=== PATIENT | female | born 1945 | race Caucasian/White ===

== ENCOUNTER → 2020-03-18 15:26 | Outpatient (CLI) | payer MEDICARE, BC, OTHER, SELFPAY ==
--- NOTE | ~2020-03-18 | MM_ITS ---
EXAMINATION: MM screening alysha BI w derrek HISTORY: Screening mammogram TECHNIQUE: Craniocaudal and mediolateral oblique 3-D tomosynthesis images were obtained and synthetic 2-D images were generated. CAD analysis was submitted and interpreted. COMPARISON: Comparison to multiple prior studies sequentially, with oldest reviewed study dated 10/07. BREAST PARENCHYMAL COMPOSITION: There are scattered areas of fibroglandular density. FINDINGS: There is no evidence of suspicious mass, calcification, or architectural distortion to sugg est malignancy in either breast. There has been no suspicious interval change. IMPRESSION: 1. No mammographic evidence of malignancy. 2. Recommend routine screening mammography in one year. BI-RADS Category 1: Negative Reviewed, dictated and finalized at location A.
== END ==
PROVIDERS: Visit Provider Obstetrics & Gynecology
DX: Z12.31 Encounter for screening mammogram for malignant neoplasm of breast (principal)
CPT/HCPCS: 77063; 77067

== ENCOUNTER 2020-09-05 16:12 | Emergency (ER) | payer MEDICARE, BC, OTHER, SELFPAY ==
[2020-09-05 16:20] VITALS: BP 136/62; PULSE 75; RESP 20; TEMP 36.5; O2SAT 99
--- NOTE | 2020-09-05 16:35 | ED.GENADULT ---
HPI - General Adult General Chief complaint: Urogenital-Female Stated complaint: UTI SYMPTOMS Time Seen by Provider: 09/05/20 16:33 Source: patient and RN notes reviewed Mode of arrival: ambulatory Limitations: no limitations History of Present Illness HPI narrative: 75-year-old female presents with urinary complaints for 3 days. Dysuria consist of burning, frequency, right lower and right flank pain.? No treatment.? Denies fever or chills. No significant pelvic pain. No vaginal discharge.? No concerns for STDs. Exacerbating factors urinating.? Denies hematuria or vaginal bleeding. LMP post menopausal. Denies nausea, vomiting, and abdominal pain.? Tolerating liquids well.? Remains active. The patient reports she was diagnosed with COVID-19 on 08/21/20. The patient reports she is not waiting for the results of a COVID-19 lab test. The patient reports she do not have sweats, weakness, or fatigue. The patient reports she do not have a new or worsening cough or shortness of breath. Ileana does reports a constant cough with intermittent chest irritation with coughing episodes. Delsym without relief. No chest congestion or productive cough. Nasal congestion. Denies chest pain. The patient reports she do not have any rhinorrhea, sore throat, loss of taste, and diarrhea. Denies recent traveling. Denies concerns for COVID-19 or exposures been home with limited outdoor exposure except for essential household needs and return home. At this time, patient is not suspected of having COVID-19. Some parts of this dictation were generated by voice recognition software and may contain typographical and/or grammatical inaccuracies. Related Data Allergies Allergy/AdvReac Type Severity Reaction Status Date / Time ephedrine Allergy Unknown Palpitation Verified 09/05/20 17:01 s levofloxacin Allergy Unknown Diarrhea Verified 09/05/20 17:01 magnesium stearate Allergy Unknown Other Verified 09/05/20 17:01 Penicillins Allergy Unknown Other Verified 09/05/20 17:01 ciprofloxacin AdvReac Unknown Diarrhea Verified 09/05/20 17:01 Quinolones AdvReac Unknown Diarrhea Verified 09/05/20 17:01 Contrast Media Allergy Unknown Rash Uncoded 03/31/20 10:45 Review of Systems Review of Systems: Narrative: CONSTITUTIONAL: Denies fever, chills, sweats. EYES: Denies visual changes, redness, discharge. ENT: Denies rhinorrhea, sore throat, otalgia. Complains of congestion. CARDIOVASCULAR: Denies chest pain, palpitations, edema. RESPIRATORY: Denies dyspnea, wheezing. Complains of dry cough, GASTROINTESTINAL: Denies abdominal pain, nausea, vomiting, diarrhea. GENITOURINARY: Complains of dysuria (burning, frequency, right lower and right flank pain). Denies hematuria, abnormal discharge. SKIN: Denies rash or itching. MUSCULOSKELETAL: Denies acute back pain, joint pain, or myalgia. NEUROLOGIC: Denies numbness or focal weakness. PSYCHIATRIC: Denies anxiety or depression. All systems reviewed & are unremarkable except as noted in HPI and below. [facility] Past Medical History Medical History (Updated 09/06/20 @ 00:00 by [facility] Alisha) Chronic pain of both knees Hematuria History of gastroesophageal reflux (GERD) Irritable bowel syndrome Screening for hyperlipidemia Seborrheic dermatitis, unspecified Surgical History Surgical History (Updated 09/05/20 @ 17:00 by GARTH Wilkins) Cataract extraction status, left eye (~2019) History of lumpectomy of right breast Family History Family History Father Hypertension, Onset Age: 81 Cerebrovascular accident, Onset Age: 81 Patient's father is , Onset Age: 81 Mother Hypertension Cerebrovascular accident Family history of diabetes mellitus in first degree relative Family history of malignant neoplasm of breast in first degree relative Family history of glaucoma Family history of heart disease in male family member before a
== END 2020-09-05 17:25 | disposition home or self-care (01) ==
PROVIDERS: Emergency Provider Nurse Practitioner Family
DX: R30.0 Dysuria (principal); R05 Cough; K21.9 Gastro-esophageal reflux disease without esophagitis
CPT/HCPCS: 81003; 87086; 99213; G0463

== ENCOUNTER 2020-09-29 15:33 | Outpatient (CLI) | payer MEDICARE, BC, OTHER, SELFPAY ==
--- NOTE | ~2020-09-29 | CT_ITS ---
EXAMINATION: CT chest abdomen pelvis wo con DATE: 09/29/2020 15:56 INDICATION: Left upper quadrant abdominal pain, back pain and chest pain. COVID positive for one tatianna h prior. TECHNIQUE: Computed tomography (CT) of the chest, abdomen, and pelvis was performed without intraveno us contrast. Automated exposure control and iterative reconstruction technique were employed. The dos e-length product was 397.93 mGy-cm. COMPARISON: 10/09/2019 FINDINGS: CHEST CT: Minimal emphysema with mild biapical pleural-parenchymal scarring. Unchanged pattern of scattered deepti ear discoid atelectasis/scarring in both lungs. No new airspace opacities, pulmonary edema or pleural effusion. No change in a couple tiny likely granuloma in the left upper lobe the larger measuring 3 mm. Heart size is normal. Small pericardial effusion. Atherosclerotic coronary artery calcification. Thoracic aorta is normal in caliber. No pathologically enlarged thoracic lymphadenopathy. Mild to mod erate thoracic spondylosis.. ABDOMEN/PELVIS CT: Liver, gallbladder, spleen and adjacent splenule, pancreas and bilateral bilateral adrenal glands are normal. A few tiny bilateral low-attenuation renal cysts which are better appreciated on prior contr ast enhanced CT . Large amount of stool scattered throughout the colon suggestive of constipation. No dilated bowel to suggest obstruction. The appendix is not visualized. No pericecal inflammatory torres ge to suggest acute appendicitis. Unchanged likely benign 2.2 cm right adnexal cyst. Bladder, atrophi c uterus and left adnexa are unremarkable. No free intraperitoneal gas or fluid. No pathologically en larged abdominal or pelvic lymphadenopathy. Mild to moderate thoracic spondylosis. IMPRESSION: 1. Small pericardial effusion. 2. Large amount of colonic stool which could be seen with constipation. No other acute intra-abdomina l/pelvic process. Reviewed, dictated and finalized at location A. ER MANAGEMENT SPECIALIST IMPRESSION: 1. Small pericardial effusion. 2. Large amount of colonic stool which could be seen with constipation. No othe r acute intra-abdominal/pelvic process.
== END 2020-09-29 15:34 | disposition home or self-care (01) ==
LOC: ANHIMG 15:33
DX: R10.12 Left upper quadrant pain (principal); M47.814 Spondylosis without myelopathy or radiculopathy, thoracic region; I31.3 Pericardial effusion (noninflammatory); N28.1 Cyst of kidney, acquired; I25.10 Atherosclerotic heart disease of native coronary artery without angina pectoris
CPT/HCPCS: 71250; 74176

== ENCOUNTER 2020-10-12 09:20 | Outpatient (CLI) | payer MEDICARE, BC, OTHER, SELFPAY ==
--- NOTE | ~2020-10-12 | MR_ITS ---
EXAMINATION: MR thoracic spine wo con EXAM DATE: 10/12/2020 10:28 INDICATION: Localized swelling of back, left-sided back pain. TECHNIQUE: Multi-sequential, multiplanar MR images of the thoracic spine were obtained without contra st. Sagittal T1, T2, T2 fat saturation, axial T2 weighted images reviewed. Comparison is made to madhu or examination from 02/14/2017. FINDINGS: There is mild diffuse thoracic facet arthropathy. The thoracic central canal and neural for amen are widely patent. Several small endplate Schmorl's nodes, mild disc disease. There are scattere d focal signal abnormalities consistent with hemangiomata, otherwise without focal suspicious marrow signal abnormalities. The vertebral bodies are aligned in the AP dimension. Paraspinal soft tissue is unremarkable. IMPRESSION: Mild thoracic spondylosis. Reviewed, dictated and finalized at location A. TIAN BLIND MAKER IMPRESSION: Mild thoracic spondylosis.
--- NOTE | ~2020-10-12 | MR_ITS ---
EXAMINATION: MR lumbar spine wo [facility] EXAM DATE: 10/12/2020 10:28 INDICATION: Localized swelling of back. Low back pain. TECHNIQUE: Multi-sequential, multiplanar MR images of the lumbar spine were obtained without contrast . Sagittal T1, T2, T2 fat saturation images. Axial T2 weighted images. Comparison is made to prior examination from 02/23/2016. FINDINGS: Mild to moderate lumbar disc disease. The conus medullaris terminates at the L1/2 level and has normal signal intensity and morphology. There are no suspicious marrow signal abnormalities. Th e vertebral bodies are aligned in the AP dimension. Paraspinal soft tissue is unremarkable. Level by level evaluation: T12-L1: There is a minimal diffuse disc bulge. Facet arthropathy: Mild. Neural foraminal stenosis: No stenosis. Central canal stenosis: No stenosis. L1-L2: There is a mild diffuse disc bulge. Facet arthropathy: Mild. Neural foraminal stenosis: No stenosis. Central canal stenosis: No stenosis. L2-L3: There is a mild to moderate diffuse disc bulge. Facet arthropathy: Mild to moderate. Neural foraminal stenosis: Mild to moderate right, mild left. Central canal stenosis: Mild. L3-L4: There is a mild to moderate diffuse disc bulge. Facet arthropathy: Mild. Neural foraminal stenosis: Mild to moderate right, mild left. Central canal stenosis: Mild to moderate. L4-L5: There is a mild to moderate diffuse disc bulge. Facet arthropathy: Mild to moderate. Neural foraminal stenosis: Mild to moderate bilateral. Central canal stenosis: Moderate. L5-S1: There is a moderate diffuse disc bulge. Facet arthropathy: Mild to moderate right, mild left. Neural foraminal stenosis: Moderate bilateral. Central canal stenosis: Moderate. Narrowed lateral recesses bilaterally. Mild interval progression in spondylosis compared to 2016. IMPRESSION: 1. Up to moderate lumbar spondylosis as detailed above. Reviewed, dictated and finalized at location A. SPHERIC PHYSICS PROFESSOR
== END 2020-10-12 09:21 | disposition home or self-care (01) ==
DX: R22.2 Localized swelling, mass and lump, trunk (principal); M47.817 Spondylosis without myelopathy or radiculopathy, lumbosacral region; M48.07 Spinal stenosis, lumbosacral region; M47.815 Spondylosis without myelopathy or radiculopathy, thoracolumbar region; M48.05 Spinal stenosis, thoracolumbar region
CPT/HCPCS: 72146; 72148

== ENCOUNTER → 2020-12-24 14:13 | Outpatient (CLI) | payer MEDICARE, BC, OTHER, SELFPAY ==
--- NOTE | ~2020-12-24 | XR_ITS ---
EXAMINATION: XR chest 2V EXAM DATE: 12/24/2020 14:54 INDICATION: Chest wall pain. Sternal pain, pain under the clavicles, with tenderness. Pain with swall owing. States progression after having endoscopy. TECHNIQUE: Frontal and lateral projections of the chest obtained and reviewed. Comparison is made to prior examination from 08/26/2018. FINDINGS: Severe chronic hyperinflation. The lungs are clear. There are no pleural effusions. The cardiomediastinal silhouette is within normal limits. No evidence of mediastinal or subcutaneous gas. There is no pneumothorax suspected. The bones and soft tissues are unremarkable. IMPRESSION: 1. No acute cardiopulmonary findings. 2. Hyperinflation. Reviewed, dictated and finalized at location A.
== END ==
DX: R07.89 Other chest pain (principal); M94.0 Chondrocostal junction syndrome [Tietze]; R91.8 Other nonspecific abnormal finding of lung field
CPT/HCPCS: 71046

== ENCOUNTER 2021-01-11 11:46 | Emergency (ER) | payer MEDICARE, BC, OTHER, SELFPAY ==
--- NOTE | ~2021-01-11 | CT_ITS ---
EXAMINATION: CT abdomen pelvis wo con DATE: 01/11/2021 13:32 INDICATION: Left-sided abdomen pain TECHNIQUE: Computed tomography (CT) of the abdomen and pelvis was performed without intravenous contr ast. The dose-length product was 253.89 mGy-cm. Automated exposure control and iterative reconstruction technique were employed. COMPARISON: CT dated 09/29/2020 FINDINGS: Bibasilar atelectasis. Small pericardial effusion. Trace left pleural effusion. Moderate at herosclerosis without evidence for aneurysm. The liver, spleen, pancreas, adrenal glands and kidneys are unremarkable. There is a 2.2 cm right adn exal cyst. Small hiatal hernia. No significant lymphadenopathy. Mild osteoarthritis of the hips. No a cute osseous abnormality. No lytic or blastic lesions. IMPRESSION: 1. Small pericardial effusion. 2: Trace left pleural effusion. 3: 2.2 cm right adnexal cyst. Reviewed, dictated and finalized at location B.
[2021-01-11 11:51] VITALS: BP 154/63; PULSE 77; RESP 20; TEMP 36.2; O2SAT 99
[2021-01-11 12:07] LABS: Hematocrit 40.5 % (37.0-47.0); Hemoglobin 13.7 g/dL (12.0-15.0); Mean Corpuscular HGB Conc 33.8 g/dl (32-36); Mean Corpuscular Volume 91.6 fl (80-100); Mean Platelet Volume 10.2 fl (7.4-10.4); Platelet Count Result 223 k/mm3 (150-375); Red Blood Count 4.42 M/mm3 (4.2-5.4); Red Cell Distribution Width 13.1 % (11.5-14.5); White Blood Count 9.9 K/mm3 (4.5-10.0)
[2021-01-11 12:16] LABS: Alanine Aminotransferase 15 U/L (4-35); Albumin Level 4.3 g/dL (3.5-5.1); Alkaline Phosphatase 62 U/L (38-126); Anion Gap 3 mmol/L (8-16); Aspartate Amino Transferase 24 U/L (14-36); Bilirubin,Total 0.4 mg/dL (0.2-1.3); Blood Urea Nitrogen 14 mg/dL (7-17); Calcium 8.8 mg/dL (8.4-10.2); Carbon Dioxide 28 mmol/L (22-30); Chloride 102 mmol/L (98-107); Estimated CRCL calculation 61 ml/min; Estimated Glomerular Filt Rate > 60; Glucose 111 mg/dL (65-105); Lipase 83 U/L (23-300); Potassium 4.1 mmol/L (3.4-5.0); Sodium 133 mmol/L (137-145)
[2021-01-11 12:19] LABS: Eosinophils Absolute Manual 0.19 K/mm3 (0.02-0.5); Eosinophils Percent Manual 2 % (0-4); Lymphocytes Absolute Manual 4.45 K/mm3 (1.1-4.5); Monocytes Absolute Manual 0.49 K/mm3 (0.1-0.90); Monocytes Percent Manual 5 % (3-9); Neutrophils Percent Manual 48 % (46-73); Total Cells Counted 100
[2021-01-11 12:23] LABS: Atypical Lymphocytes Present; Platelet Estimate Adequate (Adequate); Smudge Cells FEW
--- NOTE | 2021-01-11 13:21 | ED.ABDPAIN ---
HPI - Abdominal Pain General Chief Complaint: Abdominal Pain Stated Complaint: left flank pain Time Seen by Provider: 01/11/21 12:56 Source: patient Mode of arrival: ambulatory Limitations: no limitations History of Present Illness HPI narrative: This is a 75 year old female that presents to the ER for left sided abdominal pain intermittent over the last week. Reports worsening today. Associated with some constipation. Denies fever, vomiting, diarrhea, hematochezia, or dysuria. Related Data Home Medications Medication Instructions Recorded Confirmed acetaminophen 325 mg capsule 325 mg PO Q6H PRN 12/24/20 multivitamin 1 tablet PO DAILY 12/24/20 Allergies Allergy/AdvReac Type Severity Reaction Status Date / Time sulfamethoxazole Allergy Intermediate Rash Verified 01/11/21 12:54 [From Bactrim] trimethoprim [From Bactrim] Allergy Intermediate Rash Verified 01/11/21 12:54 levofloxacin Allergy Unknown Diarrhea Verified 01/11/21 12:54 magnesium stearate Allergy Unknown Other Verified 01/11/21 12:54 Penicillins Allergy Unknown Other Verified 01/11/21 12:54 esomeprazole [From Nexium] Allergy Rash Verified 01/11/21 13:54 famotidine Allergy Muscle Pain Verified 01/11/21 13:54 ephedrine AdvReac Intermediate Palpitation Verified 01/11/21 12:54 s ciprofloxacin AdvReac Unknown Diarrhea Verified 01/11/21 12:54 Quinolones AdvReac Unknown Diarrhea Verified 01/11/21 12:54 Contrast Media Allergy Unknown Rash Uncoded 01/11/21 12:54 Review of Systems Review of Systems: Narrative: CONSTITUTIONAL: Denies fever GASTROINTESTINAL: Reports abdominal pain. Denies nausea, vomiting, or diarrhea. GENITOURINARY: Denies dysuria or hematuria. All systems reviewed & are unremarkable except as noted in HPI and below PMFSH Past Medical History Medical History (Updated 01/11/21 @ 15:36 by Hayley Perea PA-C) Chronic pain of both knees Costochondritis, acute Hematuria History of gastroesophageal reflux (GERD) Irritable bowel syndrome Screening for hyperlipidemia Seborrheic dermatitis, unspecified Surgical History Surgical History Cataract extraction status, left eye (~2019) History of lumpectomy of right breast Family History Family History Father Hypertension, Onset Age: 81 Cerebrovascular accident, Onset Age: 81 Patient's father is , Onset Age: 81 Mother Hypertension Cerebrovascular accident Family history of diabetes mellitus in first degree relative Family history of malignant neoplasm of breast in first degree relative Family history of glaucoma Family history of heart disease in male family member before age 55 Sibling Malignant neoplasm of prostate Grandparent Hypertension Diabetes mellitus Other Family history of cardiovascular disease Social History Social History Smoking status: Never smoker Tobacco type: cigarettes Second hand tobacco smoke exposure: No Alcohol intake: never Substance use: never Additional living arrangements comments: Spouse Gender identity (if verbalized by the patient): Female Exam Narrative: Exam Narrative: GENERAL: Well-appearing, well-nourished, and in no acute distress. HEAD: Normocephalic, atraumatic. EYES: EOMI. CHEST: Clear to auscultation. No respiratory distress. No wheezes rales or rhonchi HEART: Regular rate and rhythm. No murmur heard. Normal peripheral pulses. ABDOMEN: Soft, nondistended, normal active bowel sounds. Tender to palpation throughout the left lower abdomen, without guarding. No CVA tenderness EXTREMITIES: Normal range of motion. No edema. SKIN: Warm, dry, no rash. NEURO: No focal deficits. Alert and oriented x3. PSYCH: Normal mood and affect Course Vital Signs Vital signs: Vital Signs Temperature 97.2 F L 01/11/21 11:51 Pulse Rate
[2021-01-11 13:22] LABS: Add Urine Microscopic? YES; Appearance Urine Clear (Clear); Bilirubin Urine Negative (Negative); Blood Urine 1+ (Negative); Color Urine Straw (Yellow); Glucose Urine UA Negative (Negative); Ketones Urine Negative (Negative); Leukocyte Esterase Ur Negative LEU/UL (Negative); Nitrate Urine Negative (Negative); Protein Urine Negative (Negative); RBC Urine 0-2 /hpf (0-2); Specific Grav Ur 1.009 (1.001-1.035); Urobilinogen Urine Negative mg/dL (<2.0); WBC Urine 0-3 /hpf
[2021-01-11 13:50] VITALS: BP 122/87; PULSE 77; RESP 17; O2SAT 97
--- NOTE | 2021-01-11 14:07 | ECG_ITS ---
Measurements Intervals [place] Rate: 69 P: 78 MA: 134 QRS: 47 QRSD: 87 T: 46 QT: 384 QTc: 412 Interpretive Statements SINUS RHYTHM NORMAL ECG Electronically Signed On 01-11-2021 14:52:41 CDT by Dustin Mercedes D.O.
--- NOTE | 2021-01-11 14:16 | PC.NURSE ---
called lab, Taylor, added on PT INR PTT, Trop I 141
[2021-01-11 14:32] LABS: Prothrombin Time 13.4 Seconds (11.1-14.7)
[2021-01-11 14:33] LABS: Partial Thromboplastin Time 30.2 SECONDS (22.3-36.8)
[2021-01-11 14:38] LABS: Troponin I < 0.012 ng/mL (0.000-0.034)
[2021-01-11 15:59] VITALS: BP 137/73; PULSE 71; RESP 18; O2SAT 98
== END 2021-01-11 15:59 | disposition home or self-care (01) ==
PROVIDERS: Physician Assistant; Emergency Provider Family Medicine
DX: J90 Pleural effusion, not elsewhere classified (principal); I31.3 Pericardial effusion (noninflammatory); K21.9 Gastro-esophageal reflux disease without esophagitis; Z98.42 Cataract extraction status, left eye
CPT/HCPCS: 36415; 74176; 80053; 81001; 83690; 84484; 85025; 85610; 85730; 93005; 99284

== ENCOUNTER 2021-01-23 17:56 | Emergency (ER) | payer MEDICARE, BC, OTHER, SELFPAY ==
--- NOTE | ~2021-01-23 | XR_ITS ---
EXAMINATION: XR chest 2V DATE: 01/23/2021 18:49 INDICATION: Midsternal chest pain. TECHNIQUE: Frontal and lateral views of the chest were obtained. COMPARISON: Chest 2 views 12/24/2020, chest CT 09/29/2020 FINDINGS: There is mild scarring at the lung apices. There is mild atelectasis at left lung base. No pleural effusion or pneumothorax. The heart size is normal. IMPRESSION: 1. Mild scarring at the lung apices and mild atelectasis at left lung base. Reviewed, dictated and finalized at location A.
--- NOTE | 2021-01-23 17:59 | ECG_ITS ---
Measurements Intervals [place] Rate: 73 P: 78 TN: 127 QRS: 66 QRSD: 90 T: 44 QT: 373 QTc: 412 Interpretive Statements SINUS RHYTHM BASELINE ARTIFACT- II, III, AVF, V3-V5 NORMAL ECG Electronically Signed On 01-23-2021 20:57:27 CDT by Dustin Mercedes D.O.
[2021-01-23 18:00] VITALS: BP 136/75; PULSE 78; RESP 16; TEMP 36.3; O2SAT 97
[2021-01-23 18:18] LABS: Basophils Percent Auto 0.3 % (0.2-1.2); Eosinophils Absolute Auto 0.1 K/mm3 (0-0.3); Eosinophils Percent Auto 1.2 % (0-4.4); Hemoglobin 13.6 g/dL (12.0-15.0); Immature Granulocyte Absolute 0.02 K/mm3 (0.00-0.031); Immature Granulocyte Percent A 0.2 % (0-0.5); Lymphocytes Absolute Auto 6.69 K/mm3 (0.9-3.2); Lymphocytes Percent Auto 58.3 % (18.3-44.2); Mean Corpuscular HGB Conc 33.2 g/dl (32-36); Mean Corpuscular Hemoglobin 30.7 pg (26-34); Mean Corpuscular Volume 92.6 fl (80-100); Mean Platelet Volume 10.2 fl (7.4-10.4); Monocytes Absolute Auto 0.9 K/mm3 (0.1-0.6); Monocytes Percent Auto 7.5 % (2.6-8.5); Neutrophils Absolute Auto 3.7 K/mm3 (1.3-6.7); Neutrophils Percent Auto 32.5 % (45.5-73.1); Nucleated Red Blood Cells Perc 0.3 % (0.0-0.2); Platelet Count Result 229 k/mm3 (150-375); Red Blood Count 4.43 M/mm3 (4.2-5.4); Red Cell Distribution Width 13.3 % (11.5-14.5); White Blood Count 11.5 K/mm3 (4.5-10.0)
[2021-01-23 18:28] LABS: Anion Gap 3 mmol/L (8-16); Blood Urea Nitrogen 17 mg/dL (7-17); Calcium 9.5 mg/dL (8.4-10.2); Carbon Dioxide 32 mmol/L (22-30); Chloride 100 mmol/L (98-107); Estimated CRCL calculation 47 ml/min; Estimated Glomerular Filt Rate > 60; Glucose 116 mg/dL (65-105); INR 1.1; Potassium 4.4 mmol/L (3.4-5.0); Prothrombin Time 14.3 Seconds (11.1-14.7); Sodium 135 mmol/L (137-145)
[2021-01-23 18:29] LABS: Partial Thromboplastin Time 26.5 SECONDS (22.3-36.8)
[2021-01-23 18:40] LABS: Troponin I < 0.012 ng/mL (0.000-0.034)
[2021-01-23 18:58] VITALS: PULSE 76
[2021-01-23] MEDS: ASPIRIN 81 MG CHEWABLE TABLET 324 MG PO (18:58)
[2021-01-23 18:59] VITALS: BP 136/74; PULSE 75; RESP 15; O2SAT 98
[2021-01-23 19:40] VITALS: BP 117/68; PULSE 65; RESP 19; TEMP 36.6; O2SAT 97
--- NOTE | 2021-01-23 19:44 | ED.CHESTPAIN ---
HPI - Chest Pain General Chief Complaint: Chest Pain Stated Complaint: CHEST PAIN Time Seen by Provider: 01/23/21 19:08 Source: patient Mode of arrival: ambulatory Limitations: no limitations History of Present Illness HPI narrative: This is a 75 year old female with history of GERD, dysphagia who presents for evaluation pain with swallowing. She has been having pain with swallowing for months. She states she had an endoscopy in November which showed inflammation of the esophagus and stomach. She also reports she had her esophagus dilated at that time as well. She has followed up with that packer [employer] since her endoscopy and she states he told her to take Pepcid. She states she is unable to take PPI due to side effects. She denies fever , chills, nausea, vomiting. She is able to drink and eat although she has pain with them. Related Data Home Medications Medication Instructions Recorded Confirmed acetaminophen 325 mg capsule 325 mg PO Q6H PRN 12/24/20 01/20/21 multivitamin 1 tablet PO DAILY 12/24/20 01/20/21 calcium carbonate 390 mg calcium 390 mg PO DAILY 01/14/21 01/20/21 (1,000 mg) tablet Allergies Allergy/AdvReac Type Severity Reaction Status Date / Time sulfamethoxazole Allergy Intermediate Rash Verified 01/23/21 18:04 [From Bactrim] trimethoprim [From Bactrim] Allergy Intermediate Rash Verified 01/23/21 18:04 levofloxacin Allergy Unknown Diarrhea Verified 01/23/21 18:04 magnesium stearate Allergy Unknown Other Verified 01/23/21 18:04 Penicillins Allergy Unknown Other Verified 01/23/21 18:04 esomeprazole [From Nexium] Allergy Rash Verified 01/23/21 18:04 famotidine Allergy Muscle Pain Verified 01/23/21 18:04 ephedrine AdvReac Intermediate Palpitation Verified 01/23/21 18:04 s ciprofloxacin AdvReac Unknown Diarrhea Verified 01/23/21 18:04 Quinolones AdvReac Unknown Diarrhea Verified 01/23/21 18:04 Contrast Media Allergy Unknown Rash Uncoded 01/11/21 12:54 Review of Systems Review of Systems: All systems reviewed & are unremarkable except as noted in HPI and below PMFSH Past Medical History Medical History Chronic pain of both knees Costochondritis, acute Hematuria History of gastroesophageal reflux (GERD) HSV (herpes simplex virus) infection Irritable bowel syndrome Screening for hyperlipidemia Seborrheic dermatitis, unspecified Surgical History Surgical History Cataract extraction status, left eye (~2019) History of lumpectomy of right breast Family History Family History Father Hypertension, Onset Age: 81 Cerebrovascular accident, Onset Age: 81 Patient's father is , Onset Age: 81 Mother Hypertension Cerebrovascular accident Family history of diabetes mellitus in first degree relative Family history of malignant neoplasm of breast in first degree relative Family history of glaucoma Family history of heart disease in male family member before age 55 Sibling Malignant neoplasm of prostate Grandparent Hypertension Diabetes mellitus Other Family history of cardiovascular disease Social History Social History Smoking status: Never smoker Tobacco type: cigarettes Second hand tobacco smoke exposure: No Alcohol intake: never Substance use: never Additional living arrangements comments: Spouse Gender identity (if verbalized by the patient): Female Exam Const: General: no acute distress and alert Orientation/consciousness: patient oriented x3 Eyes: EOM: EOMs intact bilaterally Resp: Effort & Inspection: normal respiratory effort and no retractions Auscultation: clear to auscultation bilaterally Cardio: Rate: regular rate Rhythm: regular rhythm Heart sounds: no murmurs GI: GI Palp: Yes Soft
[2021-01-23 19:51] LABS: D Dimer 0.36 ug/mL (<0.48)
[2021-01-23 21:38] LABS: Troponin I < 0.012 ng/mL (0.000-0.034)
[2021-01-23 22:26] VITALS: BP 136/78; PULSE 77; RESP 16; TEMP 36.6; O2SAT 97
== END 2021-01-23 22:28 | disposition home or self-care (01) ==
PROVIDERS: Emergency Medicine; Emergency Provider General Practice
DX: R13.10 Dysphagia, unspecified (principal); R07.89 Other chest pain; K21.9 Gastro-esophageal reflux disease without esophagitis; K58.9 Irritable bowel syndrome, unspecified; Z98.42 Cataract extraction status, left eye
CPT/HCPCS: 36415; 71046; 80048; 84484; 85025; 85380; 85610; 85730; 93005; 99284; A9270

== ENCOUNTER → 2021-05-12 10:41 | Outpatient (CLI) | payer MEDICARE, BC, OTHER, SELFPAY ==
--- NOTE | ~2021-05-12 | US_ITS ---
EXAMINATION: US pelvic complete EXAM DATE: 05/12/2021 11:20 INDICATION: N83.201 - Unspecified ovarian cyst, right side. TECHNIQUE: Pelvic transabdominal sonogram was performed. Transvaginal imaging attempted but patient d eclined. There are multiple grayscale and Doppler images available for interpretation. Comparison is made to prior examination from 11/24/2016. Correlation was made with CT abdomen pelvis 01/11/2021. FINDINGS: Uterus measures 7.3 x 2.2 x 3.2 cm, and is morphologically normal. Endometrial stripe syd sures 4 mm, within normal limits. There is no free pelvic fluid. Right adnexa: The ovary is not identified. There is no adnexal mass. Bowel was identified in the adne xal region. Correlating with CT scan 01/11/2021, there was a 2 cm cyst in the right ovary. Similar siz ed cyst was present on ultrasound in 2017. Uncertain whether or not this cystic lesion is still prese nt, whether or not previously identified cysts are the same lesion stable over 4 years. This lesion m ight still be present just not visualized and if same lesion on both prior studies, stability would b e consistent with benign histology. Left adnexa: The left ovary is normal in size and morphology. IMPRESSION: Unremarkable uterus, left ovary. Right ovary not identified. Reviewed, dictated and finalized at location A.
== END ==
PROVIDERS: Visit Provider Obstetrics & Gynecology
DX: N83.201 Unspecified ovarian cyst, right side (principal)
CPT/HCPCS: 76856

== ENCOUNTER → 2021-06-04 14:21 | Outpatient (CLI) | payer MEDICARE, BC, OTHER, SELFPAY ==
--- NOTE | ~2021-06-04 | MM_ITS ---
EXAMINATION: MM screening alysha BI w derrek HISTORY: Screening TECHNIQUE: Craniocaudal and mediolateral oblique 3-D tomosynthesis images were obtained and synthetic 2-D images were generated. CAD analysis was submitted and interpreted. COMPARISON: Comparison to multiple prior studies sequentially, with oldest reviewed study dated 10/07. BREAST PARENCHYMAL COMPOSITION: There are scattered areas of fibroglandular density. FINDINGS: Right breast asymmetry in the upper central right breast is unchanged. There is no evidence of suspicious mass, calcification, or architectural distortion to suggest malignancy in either breas t. There has been no suspicious interval change. IMPRESSION: 1. No mammographic evidence of malignancy. 2. Recommend routine screening mammography in one year. BI-RADS Category 1: Negative Reviewed, dictated and finalized at location A.
== END ==
PROVIDERS: Visit Provider Obstetrics & Gynecology
DX: Z12.31 Encounter for screening mammogram for malignant neoplasm of breast (principal)
CPT/HCPCS: 77063; 77067

== ENCOUNTER → 2021-06-15 11:01 | Outpatient (CLI) | payer MEDICARE, BC, OTHER, SELFPAY ==
--- NOTE | ~2021-06-15 | DEXA_ITS ---
Bone Density Report Name: Ileana Coombs Age: 76 Sex: Female Ethnicity: White Date of : 1945 Indication: postmenopausal osteoporosis; parental hip fracture; height loss; Referring Provider: KAREN TANG Study: Bone densitometry was performed. Exam Date: June 15, 2021 Accession number: [id number] Bone Density: Region BMD T-score Z-score Classification AP Spine (L1-L4) 0.694 -3.2 -0.7 Osteoporosis Femoral Neck (Left) 0.668 -1.6 0.5 Osteopenia Total Hip (Left) 0.890 -0.4 1.5 Normal Femoral Neck (Right) 0.638 -1.9 0.3 Osteopenia Total Hip (Right) 0.862 -0.7 1.2 Normal Total Hip Mean 0.876 -0.6 1.4 Normal World Health Organization criteria for BMD impression classify patients as: Normal (T-score at or above -1.0), Osteopenia (T-score between -1.0 and -2.5), or Osteoporosis (T-score at or below -2.5). 10-year Fracture Risk: FRAX not reported because: Some T-score for Spine Total or Hip Total or Femoral Neck at or below -2.5 Previous Exams: Region Exam Age BMD T-score BMD Change BMD Change Date g/cm2 vs Baseline vs Previous AP Spine(L1-L4) 06/15/2021 76 0.694 -3.2 -0.106* -0.025* 06/11/2019 74 0.720 -3.0 -0.081* 0.027* 01/22/2015 69 0.693 -3.2 -0.108* -0.060* 03/07/2012 66 0.753 -2.7 -0.048* 0.016 03/07/2012 66 0.737 -2.8 -0.064* -0.022 03/05/2010 64 0.759 -2.6 -0.042* -0.026* 10/22/2007 62 0.785 -2.4 -0.016 -0.016 11/18/2004 59 0.801 -2.2 Total Hip(Left) 06/15/2021 76 0.890 -0.4 -0.043* -0.037* 06/11/2019 74 0.927 -0.1 -0.006 0.032* 01/22/2015 69 0.895 -0.4 -0.038* -0.051* 03/07/2012 66 0.945 0.0 0.012 -0.025 03/05/2010 64 0.970 0.2 0.038* -0.001 10/22/2007 62 0.971 0.2 0.038* 0.038* 11/18/2004 59 0.933 -0.1 Total Hip(Right) 06/15/2021 76 0.862 -0.7 -0.102* -0.006 06/11/2019 74 0.868 -0.6 -0.097* 0.006 01/22/2015 69 0.862 -0.7 -0.103* -0.097* 03/07/2012 66 0.959 0.1 -0.006 -0.027* 03/05/2010 64 0.986 0.4 0.021 0.020 10/22/2007 62 0.966 0.2 0.001 0.001 11/18/2004 59 0.965 0.2 *Denotes significance at 95% confidence level, LSC for AP Spine = 0.022 g/cm2, LSC for Total Hip = 0.027 g/cm2 Clinical Information Provid
== END ==
PROVIDERS: Visit Provider Obstetrics & Gynecology
DX: Z78.0 Asymptomatic menopausal state (principal); M81.0 Age-related osteoporosis without current pathological fracture; M85.851 Other specified disorders of bone density and structure, right thigh; M85.852 Other specified disorders of bone density and structure, left thigh
CPT/HCPCS: 77080

== ENCOUNTER 2022-02-04 10:26 | Outpatient (CLI) | payer MEDICARE, BC, OTHER, SELFPAY ==
--- NOTE | ~2022-02-04 | XR_ITS ---
EXAMINATION: XR lumbar spine min 4V DATE: 02/04/2022 10:56 INDICATION: Low back pain. Bilateral leg pain. TECHNIQUE: 5 views of lumbar spine were obtained. COMPARISON: CT abdomen and pelvis 01/11/2021 FINDINGS: There is 6 degrees levocurvature of lumbar spine. Vertebral body heights are normal. There is mildly decreased disc height at L2-L3 and L3-L4. There is multilevel mild facet joint osteoarthrit is. At L5-S1, there is severe bilateral facet joint osteoarthritis. IMPRESSION: 1. Mild lumbar spondylosis. Reviewed, dictated and finalized at location A. IMPRESSION: 1. Mild lumbar spondylosis.
== END 2022-02-04 10:27 | disposition home or self-care (01) ==
DX: M79.604 Pain in right leg (principal); M79.605 Pain in left leg; M47.816 Spondylosis without myelopathy or radiculopathy, lumbar region
CPT/HCPCS: 72110

== ENCOUNTER → 2022-05-09 12:58 | Outpatient (CLI) | payer MEDICARE, BC, OTHER, SELFPAY ==
--- NOTE | ~2022-05-09 | US_ITS ---
EXAMINATION: US venous doppler [facility] DATE: 05/09/2022 13:29 INDICATION: Bilateral lower limb pain TECHNIQUE: Grayscale ultrasound images without and with compression and Doppler ultrasound images of the bilateral lower extremity veins were obtained. COMPARISON: 08/05/2016 FINDINGS: The visualized portions of right common femoral vein, profunda (deep) femoral vein, femoral vein, pop liteal vein, posterior tibial veins, peroneal veins, gastrocnemius vein and greater saphenous vein ou tflow are patent. The visualized portions of left common femoral vein, profunda femoral vein, femoral vein, popliteal v ein, posterior tibial veins, peroneal veins, gastrocnemius vein and greater saphenous vein outflow ar e patent. IMPRESSION: 1. No deep venous thrombosis in either lower limb. Reviewed, dictated and finalized at location A.
== END ==
DX: M79.661 Pain in right lower leg (principal); M79.662 Pain in left lower leg
CPT/HCPCS: 93970

== ENCOUNTER 2022-10-10 10:53 | Emergency (ER) | payer MEDICARE, BC, OTHER, SELFPAY ==
--- NOTE | ~2022-10-10 | XR_ITS ---
Clinical Indication: Cough, Covid 19 infection PA and lateral views of the chest: Comparison: 01/23/2021 Findings: The lungs are clear, without evidence of focal consolidation or pleural effusion. Cardiome diastinal silhouette is within normal limits. Bones and soft tissues are unremarkable. Impression: Clear lungs. Possible COPD. Reviewed, dictated and finalized at location . [employer] Impression: Clear lungs. Possible COPD.
[2022-10-10 11:02] VITALS: BP 157/76; PULSE 79; RESP 16; TEMP 37.2; O2SAT 98
--- NOTE | 2022-10-10 11:36 | ED.URI ---
HPI - URI/Sore Throat General Chief Complaint: Upper Respiratory Infection Stated Complaint: shortness of breath, cough,sore throat Time Seen by Provider: 10/10/22 11:36 Source: patient, RN notes reviewed and old records reviewed Mode of arrival: ambulatory Limitations: no limitations History of Present Illness HPI Narrative: 77-year-old female accompanied by spouse is also ill presents with complaints of cough with some shortness of breath post COVID which she was diagnosed with on the of this month with COVID. Patient reports that she feels tightness to upper chest and feels dyspnea with activity mainly. Patient reports thatshe has been taking Mucinex DM and also has taken Robitussin cough syrup with minimal improvement in cough.Patient reports that she has history of costochondritis and feels like she has similar symptoms to that. Patient has scratchy voice with decreased breath sound with no tachypnea noted and SAO2 98% on room air.Patient had one COVID vaccination but had reaction no further COVID vaccinations, has had flu shot this season. MD elicited complaint: cough and other (SOB) Pertinent past history: other (COVID 09/28/2022) Pain scale (0-10): 3 Treatments prior to arrival: other (Mucinex DM and Robitussin ) Related Data Home Medications Medication Instructions Recorded Confirmed multivitamin (Daily Multi-Vitamin 1 tablet PO DAILY 12/24/20 10/10/22 tablet) calcium carbonate 390 mg calcium 390 mg PO DAILY 01/14/21 10/10/22 (1,000 mg) tablet biotin 5 mg capsule 5 mg PO DAILY 04/14/22 10/10/22 cholecalciferol (vitamin D3) 25 25 mcg PO DAILY 04/14/22 10/10/22 mcg (1,000 unit) capsule ferrous gluconate 240 mg (27 mg 240 mg PO DAILY 04/14/22 10/10/22 iron) tablet (Ferate) Allergies Allergy/AdvReac Type Severity Reaction Status Date / Time sulfamethoxazole Allergy Intermediate Rash Verified 10/10/22 11:18 [From Bactrim] trimethoprim [From Bactrim] Allergy Intermediate Rash Verified 10/10/22 11:18 cimetidine [From Tagamet] Allergy Unknown Unknown Verified 10/10/22 11:18 levofloxacin Allergy Unknown Diarrhea Verified 10/10/22 11:18 magnesium stearate Allergy Unknown Other Verified 10/10/22 11:18 Penicillins Allergy Unknown Other Verified 10/10/22 11:18 COVID-19 vaccine, mRNA, Allergy Burning Verified 10/10/22 11:18 [id number], all over the body, dryness esomeprazole [From Nexium] Allergy Rash Verified 10/10/22 11:18 famotidine Allergy Muscle Pain Verified 10/10/22 11:18 ephedrine AdvReac Intermediate Palpitation Verified 10/10/22 11:18 s ciprofloxacin AdvReac Unknown Diarrhea Verified 10/10/22 11:18 Quinolones AdvReac Unknown Diarrhea Verified 10/10/22 11:18 Contrast Media Allergy Unknown Rash Uncoded 10/10/22 11:18 Review of Systems Review of Systems: CONSTITUTIONAL: Denies malaise, chills, sweats, or fever. EYES: Denies visual changes, redness, or discharge. ENT: Reports clear rhinorrhea, congestion,no sinus pain,no otalgia, scratchy throat. CARDIOVASCULAR:upper chest tenderness especially with cough, no palpitations, or edema. RESPIRATORY: Reports cough.? Reports some dyspneawith exertion GASTROINTESTINAL: Denies abdominal pain, nausea, vomiting, diarrhea SKIN: Denies rash or itching. MUSCULOSKELETAL: Denies myalgia. NEUROLOGIC: Denies headache. All systems reviewed & are unremarkable except as noted in HPI and below PMFSH Past Medical History Medical History Chronic pain of both knees Costochondritis, acute Hematuria History of gastroesophageal reflux (GERD) HSV (herpes simplex virus) infection Irritable bowel syndrome Screening for hyperlipidemia Seborrheic dermatitis, unspecified Surgical History Surgical History Cataract extraction status, left eye (~2019) Cataract extraction status, right eye History of lumpectomy of right breast Family Histo
== END 2022-10-10 12:46 | disposition home or self-care (01) ==
PROVIDERS: Emergency Provider Registered Nurse
DX: J06.9 Acute upper respiratory infection, unspecified (principal); R05.9 Cough, unspecified; K21.9 Gastro-esophageal reflux disease without esophagitis; Z98.42 Cataract extraction status, left eye; Z98.41 Cataract extraction status, right eye; Z86.16 Personal history of COVID-19
CPT/HCPCS: 71046; 99213; G0463

== ENCOUNTER → 2023-03-03 16:07 | Outpatient (CLI) | payer MEDICARE, BC, OTHER, SELFPAY ==
--- NOTE | ~2023-03-03 | MM_ITS ---
EXAMINATION: MM screening [facility] BI w derrek HISTORY: Screening mammogram TECHNIQUE: Craniocaudal and mediolateral oblique 3-D tomosynthesis images were obtained and synthetic 2-D images were generated. CAD analysis was submitted and interpreted. COMPARISON: 06/04/2021, 03/18/2020, 09/20/2018, 01/18/2016, 10/07/2014 bilateral screening mammogram examinat ions BREAST PARENCHYMAL COMPOSITION: There are scattered areas of fibroglandular density. FINDINGS: Chronic asymmetric increased fibroglandular stroma in the mid to upper outer right breast. There is no evidence of suspicious mass, calcification, or architectural distortion to suggest malign kane in either breast. There has been no suspicious interval change. IMPRESSION: 1. No mammographic evidence of malignancy. 2. Recommend routine screening mammography in one year. BI-RADS Category 1: Negative Reviewed, dictated and finalized at location A.
== END ==
PROVIDERS: Visit Provider Obstetrics & Gynecology
DX: Z12.31 Encounter for screening mammogram for malignant neoplasm of breast (principal)
CPT/HCPCS: 77063; 77067

== ENCOUNTER 2023-04-04 14:37 | Outpatient (CLI) | payer MEDICARE, BC, OTHER, SELFPAY ==
--- NOTE | ~2023-04-04 | MR_ITS ---
MRI of the right knee Clinical history: Pain Technique: Coronal proton density and proton density-weighted images, sagittal proton-density and T2 fat-sat images, and axial proton-density fat-saturated images were acquired. Findings: Anterior and posterior cruciate ligaments are intact. Medial collateral ligament and the la teral collateral ligament complex are intact. Popliteus tendon is intact. Questionable very subtle horizontal tear posterior horn the medial meniscus versus intrasubstance deg enerative signal. No lateral meniscal tear seen. There is high-grade chondromalacia at the patellar apex extending to the medial patellar facet. Femor al trochlear cartilage is intact. There is mild chondral thinning in the medial and lateral compartme nts. Extensor mechanism is intact. No significant joint effusion. Small Grove cyst present. Impression: Questionable very subtle horizontal tear of the posterior horn medial meniscus versus intrasubstance degenerative signal. High-grade chondromalacia patella, as detailed above. Mild chondral thinning in the medial lateral co mpartments. Small Grove's cyst. Reviewed, dictated and finalized at location . Impression: Questionable very subtle horizontal tear of the posterior horn medial meniscus versus intrasubstance degenerative signal. High-grade chondromalacia patella, as detailed above. Mild chondral thinning in the medial lateral compartments. Small Grove's cyst.
--- NOTE | ~2023-04-04 | MR_ITS ---
MRI of the left knee Clinical history: Pain Technique: Coronal proton density and proton density-weighted images, sagittal proton-density and T2 fat-sat images, and axial proton-density fat-saturated images were acquired. Findings: Anterior and posterior cruciate ligaments are intact. Medial collateral ligament and the la teral collateral ligament complex are intact. Popliteus tendon is intact. There is a horizontal/oblique tear of the posterior horn and body of medial meniscus. Suspected horiz ontal tear of the body segment of the lateral meniscus. There is mild chondromalacia of the medial and lateral compartments. There is high-grade chondromalac ia the patellar apex extending to the medial patellar facet. Femoral trochlear cartilage is intact. Extensor mechanism is intact. Minimal joint effusion present, with minimal Grove's cyst. Impression: Horizontal/oblique tear of the posterior horn and body of medial meniscus. Suspected horizontal tear of the body segment of the lateral meniscus. High-grade chondromalacia patella, as detailed above. Mild chondral thinning of the medial and latera l compartments. Reviewed, dictated and finalized at location . Impression: Horizontal/oblique tear of the posterior horn and body of medial meniscus. Suspected horizontal tear of the body segment of the lateral meniscus. High-grade chondromalacia patella, as detailed above. Mild chondral thinning of the medial and lateral compartments.
== END 2023-04-04 14:38 | disposition home or self-care (01) ==
PROVIDERS: Visit Provider Orthopaedic Surgery
DX: S83.242A Other tear of medial meniscus, current injury, left knee, initial encounter (principal); X58.XXXA Exposure to other specified factors, initial encounter; M71.21 Synovial cyst of popliteal space [Baker], right knee
CPT/HCPCS: 73721

== ENCOUNTER 2023-04-13 19:17 | Emergency (ER) | payer MEDICARE, BC, OTHER, SELFPAY ==
--- NOTE | ~2023-04-13 | CT_ITS ---
EXAMINATION: CT brain wo con DATE: 04/13/2023 21:35 INDICATION: Headache. TECHNIQUE: Computed tomography (CT) of the head was performed without intravenous contrast. The dose- length product was 605.33 mGy-cm. Automated exposure control and iterative reconstruction technique w ere employed. COMPARISON: CT dated 12/21/2017 FINDINGS: Generalized atrophy. There are scattered moderate periventricular and subcortical white mat ter changes, most likely related to small vessel ischemic disease (microangiopathy). There is intracr anial atherosclerosis. No acute intracranial hemorrhage, infarction, mass or mass effect. No ventricu lomegaly or midline shift. Basilar cisterns are patent. Midline sagittal images demonstrate a normal corpus callosum and craniovertebral junction. Paranasal sinuses and mastoids are pneumatized. No depr essed skull fractures. IMPRESSION: 1. No acute intracranial abnormality. Reviewed, dictated and finalized at location A.
--- NOTE | ~2023-04-13 | XR_ITS ---
EXAMINATION: XR chest 2V 04/13/2023 19:49 INDICATION: Weakness. Dyspnea. PROCEDURE: 2 view chest COMPARISON: Comparison to multiple prior studies sequentially, with oldest reviewed study dated 08/18. FINDINGS: There is chronic left basilar atelectasis/scarring. No acute focal pneumonia, edema, signif icant effusion or pneumothorax. The cardiomediastinal silhouette is within normal limits. There are no pleural effusions. There is no pneumothorax suspected. IMPRESSION: 1: NO ACUTE CARDIOPULMONARY DISEASE. Reviewed, dictated and finalized at location A.
[2023-04-13 19:19] VITALS: BP 185/83; PULSE 91; RESP 16; TEMP 37; O2SAT 97
--- NOTE | 2023-04-13 19:25 | ECG_ITS ---
Measurements Intervals [place] Rate: 86 P: 77 MI: 131 QRS: 55 QRSD: 92 T: 44 QT: 345 QTc: 413 Interpretive Statements SINUS RHYTHM ATRIAL PREMATURE COMPLEX BORDERLINE ECG COMPARED TO ECG 01/23/2021 18:04:24 NO SIGNIFICANT CHANGES Electronically Signed On 04-13-2023 20:32:41 CDT by Dustin Mercedes D.O.
[2023-04-13 19:45] LABS: Basophils Percent Auto 0.3 % (0.2-1.2); Eosinophils Absolute Auto 0.2 K/mm3 (0-0.3); Eosinophils Percent Auto 1.3 % (0-4.4); Hematocrit 44.9 % (37.0-47.0); Hemoglobin 15.2 g/dL (12.0-15.0); Immature Granulocyte Absolute 0.02 K/mm3 (0.00-0.031); Immature Granulocyte Percent A 0.2 % (0-0.5); Lymphocytes Absolute Auto 5.65 K/mm3 (0.9-3.2); Lymphocytes Percent Auto 48.9 % (18.3-44.2); Mean Corpuscular HGB Conc 33.9 g/dl (32-36); Mean Corpuscular Hemoglobin 30.4 pg (26-34); Mean Corpuscular Volume 89.8 fl (80-100); Mean Platelet Volume 9.8 fl (7.4-10.4); Monocytes Absolute Auto 0.8 K/mm3 (0.1-0.6); Monocytes Percent Auto 6.7 % (2.6-8.5); Neutrophils Absolute Auto 4.9 K/mm3 (1.3-6.7); Neutrophils Percent Auto 42.6 % (45.5-73.1); Platelet Count Result 253 k/mm3 (150-375); Red Cell Distribution Width 12.6 % (11.5-14.5); White Blood Count 11.6 K/mm3 (4.5-10.0)
[2023-04-13 19:58] LABS: Alanine Aminotransferase 22 U/L (6-35); Albumin Level 4.6 g/dL (3.5-5.1); Alkaline Phosphatase 71 U/L (38-126); Anion Gap 11 mmol/L (8-16); Aspartate Amino Transferase 31 U/L (14-36); Bilirubin,Total 0.7 mg/dL (0.2-1.3); Blood Urea Nitrogen 13 mg/dL (7-17); Calcium 9.2 mg/dL (8.4-10.2); Carbon Dioxide 25 mmol/L (22-30); Chloride 97 mmol/L (98-107); Estimated CRCL calculation 58 ml/min; Estimated Glomerular Filt Rate > 60; Glucose 127 mg/dL (65-110); Potassium 3.9 mmol/L (3.4-5.0); Sodium 133 mmol/L (137-145)
[2023-04-13 20:01] LABS: Platelet Estimate Adequate (Adequate); Smudge Cells FEW
[2023-04-13 20:02] LABS: Atypical Lymphocytes Present; Schistocytes None Seen (NORMAL)
[2023-04-13 20:54] VITALS: BP 180/90; PULSE 76; RESP 19; O2SAT 100
[2023-04-13 21:19] LABS: Appearance Urine Clear (Clear); Bacteria Urine None Seen /hpf; Bilirubin Urine Negative (Negative); Blood Urine 1+ (Negative); Color Urine Yellow (Yellow); Glucose Urine UA Negative (Negative); Ketones Urine Negative (Negative); Leukocyte Esterase Ur 1+ LEU/UL (Negative); Need Manual Microscopic Reviewed; Nitrate Urine Negative (Negative); Non Pathogenic Casts 0-2; Protein Urine Negative (Negative); RBC Urine 0-2 /hpf (0-2); Specific Grav Ur 1.003 (1.001-1.035); Squamous Epithelial Cell Urine None seen /hpf (Few); Urobilinogen Urine 0.2 mg/dL (<2.0); WBC Urine 0-5 /hpf; pH Urine 7.5 (5.0-9.0)
[2023-04-13 21:23] LABS: Add Urine Microscopic? YES
[2023-04-13 21:37] VITALS: BP 182/77; PULSE 77; RESP 16; O2SAT 98
[2023-04-13 22:06] VITALS: BP 166/75
[2023-04-13] MEDS: ACETAMINOPHEN 500 MG TABLET 1000 MG PO (22:20)
[2023-04-13] MEDS: SODIUM CHLORIDE 0.9% IV 500 ML 999 ML IV CONT (22:21)
--- NOTE | 2023-04-13 22:32 | ED.WEAKNESS ---
HPI - Weakness General Chief complaint: Weakness Stated complaint: neuro? Time Seen by Provider: 04/13/23 21:21 Source: patient Mode of arrival: ambulatory Limitations: no limitations History of Present Illness HPI Narrative: This is a 78-year-old female presents to emergency department for multiple complaints. Reports these have been ongoing for about a week. Reports she just does not feel right. She has had a headache and felt nauseous. She also reports feeling lightheaded. She recently had a root canal and is wondering if it is something to do with her recent procedure. Denies vision changes, vomiting, or focal numbness or weakness. Related Data Home Medications Medication Instructions Recorded Confirmed multivitamin (Daily Multi-Vitamin 1 tablet PO DAILY 12/24/20 10/10/22 tablet) calcium carbonate 390 mg calcium 390 mg PO DAILY 01/14/21 10/10/22 (1,000 mg) tablet biotin 5 mg capsule 5 mg PO DAILY 04/14/22 10/10/22 cholecalciferol (vitamin D3) 25 25 mcg PO DAILY 04/14/22 10/10/22 mcg (1,000 unit) capsule ferrous gluconate 240 mg (27 mg 240 mg PO DAILY 04/14/22 10/10/22 iron) tablet (Ferate) Allergies Allergy/AdvReac Type Severity Reaction Status Date / Time sulfamethoxazole Allergy Intermediate Rash Verified 04/13/23 19:45 [From Bactrim] trimethoprim [From Bactrim] Allergy Intermediate Rash Verified 04/13/23 19:45 cimetidine [From Tagamet] Allergy Unknown Unknown Verified 04/13/23 19:45 levofloxacin Allergy Unknown Diarrhea Verified 04/13/23 19:45 magnesium stearate Allergy Unknown Other Verified 04/13/23 19:45 Penicillins Allergy Unknown Other Verified 04/13/23 19:45 COVID-19 vaccine, mRNA, Allergy Burning Verified 04/13/23 19:45 [id number], all over the body, dryness esomeprazole [From Nexium] Allergy Rash Verified 04/13/23 19:45 famotidine Allergy Muscle Pain Verified 04/13/23 19:45 ephedrine AdvReac Intermediate Palpitation Verified 04/13/23 19:45 s ciprofloxacin AdvReac Unknown Diarrhea Verified 04/13/23 19:45 Quinolones AdvReac Unknown Diarrhea Verified 04/13/23 19:45 Contrast Media Allergy Unknown Rash Uncoded 10/10/22 11:18 Review of Systems Review of Systems: CONSTITUTIONAL: Denies fever EYES: Denies visual changes CARDIOVASCULAR: Denies chest pain, or edema. RESPIRATORY: Denies dyspnea. GASTROINTESTINAL: Denies abdominal pain, nausea, vomiting GENITOURINARY: Denies dysuria NEUROLOGIC: Reports headache. Denies numbness, or weakness. All systems reviewed & are unremarkable except as noted in HPI and below PMFSH Past Medical History Medical History Chronic pain of both knees Costochondritis, acute Hematuria History of gastroesophageal reflux (GERD) HSV (herpes simplex virus) infection Irritable bowel syndrome Screening for hyperlipidemia Seborrheic dermatitis, unspecified Surgical History Surgical History Cataract extraction status, left eye (~2019) Cataract extraction status, right eye History of lumpectomy of right breast Family History Family History Father Hypertension, Onset Age: 81 Cerebrovascular accident, Onset Age: 81 Patient's father is , Onset Age: 81 Mother Hypertension Cerebrovascular accident Family history of diabetes mellitus in first degree relative Family history of malignant neoplasm of breast in first degree relative Family history of glaucoma Family history of heart disease in male family member before age 55 Sibling Malignant neoplasm of prostate Grandparent Hypertension Diabetes mellitus Other Family history of cardiovascular disease Social History Social History Smoking status: Never smoker Tobacco type: cigarettes Second hand tobacco smoke exposure: No Alcoh
[2023-04-13 23:24] VITALS: BP 184/78; PULSE 69; RESP 18; O2SAT 98
[2023-04-13 23:28] VITALS: BP 177/69
== END 2023-04-13 23:39 | disposition home or self-care (01) ==
PROVIDERS: Emergency Medicine; Emergency Provider Physician Assistant
DX: R51.9 Headache, unspecified (principal); R42 Dizziness and giddiness; K21.9 Gastro-esophageal reflux disease without esophagitis; K58.9 Irritable bowel syndrome, unspecified; Z98.42 Cataract extraction status, left eye; Z98.41 Cataract extraction status, right eye
CPT/HCPCS: 36415; 70450; 71046; 80053; 81001; 85025; 93005; 96360; 99284; A9270; J7040

== ENCOUNTER 2023-06-16 10:48 | Outpatient (CLI) | payer MEDICARE, BC, OTHER, SELFPAY ==
--- NOTE | ~2023-06-16 | MR_ITS ---
EXAMINATION: MR lumbar spine wo con DATE: 06/16/2023 11:28 INDICATION: Acute bilateral low back pain. TECHNIQUE: Magnetic resonance imaging (MRI) of the lumbar spine was performed without intravenous con trast. Sequences included sagittal T2-weighted FSE, sagittal T2-weighted FS FSE, sagittal T1-weighted FSE, and axial T2-weighted FSE. COMPARISON: Lumbar spine MRI 10/12/2020 FINDINGS: There is 9 degrees levocurvature of lumbar spine. Vertebral body heights are normal. There is mildly decreased disc height from L1-L2 through L5-S1. The distal spinal cord signal intensity is normal. The conus medullaris is at L1-L2. The following disc levels are specifically discussed: L1-L2: The disc is bulging. There is mild bilateral facet joint osteoarthritis. There is mild bilater al neural foraminal stenosis. There is mild central canal stenosis. L2-L3: The disc is bulging. There is moderate right and mild left facet joint osteoarthritis. There i s moderate and mild left neural foraminal stenosis. There is mild central canal stenosis. L3-L4: The disc is bulging and has an annular fissure. There is mild right and moderate left facet nino int osteoarthritis. There is moderate right and mild left neural foraminal stenosis. There is mild ce ntral canal stenosis. L4-L5: The disc is bulging and has an annular fissure. There is severe bilateral facet joint osteoart hritis. There is mild right and moderate left neural foraminal stenosis. There is mild central canal stenosis. L5-S1: The disc is bulging. There is severe bilateral facet joint osteoarthritis. There is mild bilat eral neural foraminal stenosis. There is mild central canal stenosis. IMPRESSION: 1. Moderate lumbar spondylosis, stable from 10/12/2020. Reviewed, dictated and finalized at location E.
== END 2023-06-16 10:49 | disposition home or self-care (01) ==
DX: M43.06 Spondylolysis, lumbar region (principal); M54.50 Low back pain, unspecified
CPT/HCPCS: 72148

== ENCOUNTER 2023-07-17 17:08 | Emergency (ER) | payer MEDICARE, BC, OTHER, SELFPAY ==
--- NOTE | ~2023-07-17 | XR_ITS ---
EXAMINATION: XR chest 1V portable 07/17/2023 18:01 INDICATION: Chest pain PROCEDURE: AP portable chest COMPARISON: Comparison to multiple prior studies sequentially, with oldest reviewed study dated 04/2021. FINDINGS: The lungs are clear. The lungs are hyperinflated which is consistent with, but not diagnost ic of chronic obstructive pulmonary disease. The cardiomediastinal silhouette is within normal limits . There are no pleural effusions. There is no pneumothorax suspected. IMPRESSION: 1: NO ACUTE CARDIOPULMONARY DISEASE. Reviewed, dictated and finalized at location A.
[2023-07-17 17:30] VITALS: BP 147/88; PULSE 138; RESP 20; TEMP 36.6; O2SAT 98
--- NOTE | 2023-07-17 17:33 | ECG_ITS ---
Measurements Intervals [place] Rate: 104 P: MI: 0 QRS: 58 QRSD: 82 T: -10 QT: 299 QTc: 393 Interpretive Statements ATRIAL FLUTTER/TACHYCARDIA WITH RAPID VENTRICULAR RESPONSE MINIMAL VOLTAGE CRITERIA FOR LVH, CONSIDER NORMAL VARIANT [MEETS CRITERIA IN ONE OF: R(aVL), S(V1), R(V5), R(V5/V6)+S(V1)] NONSPECIFIC ST & T-WAVE ABNORMALITY COMPARED TO ECG 04/13/2023 19:34:40 ATRIAL FLUTTER NOW PRESENT Electronically Signed On 07-18-2023 11:24:19 CDT by Lillian Hearn M.D.
--- NOTE | 2023-07-17 17:33 | ED.GENADULT ---
HPI - General Adult General Chief complaint: Arrhythmia/Palpitations Stated complaint: afib Time Seen by Provider: 07/17/23 19:49 History of Present Illness HPI narrative: Ileana Coombs is a 78 y/o female who presents with reports of feeling a funny flutter in her chest for about 40 hours. She states she had similar symptoms last spring and thinks it was afib, she was told to start taking xarelto but she hasn't started it yet, she called her housekeeping aide and they talked to her about starting metoprolol but has not done that yet either. She denies chest pain/ SOB Related Data Home Medications Medication Instructions Recorded Confirmed multivitamin (Daily Multi-Vitamin 1 tablet PO DAILY 12/24/20 05/02/23 tablet) calcium carbonate 390 mg calcium 390 mg PO DAILY 01/14/21 05/02/23 (1,000 mg) tablet biotin 5 mg capsule 5 mg PO DAILY 04/14/22 05/02/23 cholecalciferol (vitamin D3) 25 25 mcg PO DAILY 04/14/22 05/02/23 mcg (1,000 unit) capsule ferrous gluconate 240 mg (27 mg 240 mg PO DAILY 04/14/22 05/02/23 iron) tablet (Ferate) Allergies Allergy/AdvReac Type Severity Reaction Status Date / Time sulfamethoxazole Allergy Intermediate Rash Verified 07/17/23 18:12 [From Bactrim] trimethoprim [From Bactrim] Allergy Intermediate Rash Verified 07/17/23 18:12 cimetidine [From Tagamet] Allergy Unknown Unknown Verified 07/17/23 18:12 levofloxacin Allergy Unknown Diarrhea Verified 07/17/23 18:12 magnesium stearate Allergy Unknown Other Verified 07/17/23 18:12 Penicillins Allergy Unknown Other Verified 07/17/23 18:12 COVID-19 vaccine, mRNA, Allergy Burning Verified 07/17/23 18:12 [id number], all over the body, dryness esomeprazole [From Nexium] Allergy Rash Verified 07/17/23 18:12 famotidine Allergy Muscle Pain Verified 07/17/23 18:12 ephedrine AdvReac Intermediate Palpitation Verified 07/17/23 18:12 s ciprofloxacin AdvReac Unknown Diarrhea Verified 07/17/23 18:12 Quinolones AdvReac Unknown Diarrhea Verified 07/17/23 18:12 Contrast Media Allergy Unknown Rash Uncoded 10/10/22 11:18 [facility] Past Medical History Medical History Chronic pain of both knees Costochondritis, acute Hematuria History of gastroesophageal reflux (GERD) HSV (herpes simplex virus) infection Irritable bowel syndrome Screening for hyperlipidemia Seborrheic dermatitis, unspecified Surgical History Surgical History Cataract extraction status, left eye (~2019) Cataract extraction status, right eye History of lumpectomy of right breast Family History Family History Father Hypertension, Onset Age: 81 Cerebrovascular accident, Onset Age: 81 Patient's father is , Onset Age: 81 Mother Hypertension Cerebrovascular accident Family history of diabetes mellitus in first degree relative Family history of malignant neoplasm of breast in first degree relative Family history of glaucoma Family history of heart disease in male family member before age 55 Sibling Malignant neoplasm of prostate Grandparent Hypertension Diabetes mellitus Other Family history of cardiovascular disease Social History Social History Smoking status: Never smoker Tobacco type: cigarettes Second hand tobacco smoke exposure: No Alcohol intake: never Substance use: never Lack of Transportation: No Lack of Food: Never True Current Housing: I Have Housing Concerned About Future Housing: No Difficulty Paying Gas/Electric Bills: No Difficulty Paying for Meds: No Currently Unemployed: No Difficulty w/ Childcare or Family Care: No Living arrangements: with family Additional living arrangements comments: Spouse Occupation/Education: retired Gender identity (if verbalized by the patient): Fem
[2023-07-17 17:49] VITALS: BP 142/76; PULSE 126; RESP 18; O2SAT 99
[2023-07-17 17:56] LABS: Hematocrit 46.5 % (37.0-47.0); Hemoglobin 15.5 g/dL (12.0-15.0); Mean Corpuscular HGB Conc 33.3 g/dl (32-36); Mean Corpuscular Hemoglobin 30.5 pg (26-34); Mean Corpuscular Volume 91.5 fl (80-100); Mean Platelet Volume 10.4 fl (7.4-10.4); Platelet Count Result 269 k/mm3 (150-375); Red Blood Count 5.08 M/mm3 (4.2-5.4); Red Cell Distribution Width 13.5 % (11.5-14.5); White Blood Count 10.7 K/mm3 (4.5-10.0)
[2023-07-17 18:09] LABS: Alanine Aminotransferase 24 U/L (6-35); Albumin Level 4.6 g/dL (3.5-5.1); Alkaline Phosphatase 59 U/L (38-126); Anion Gap 8 mmol/L (8-16); Aspartate Amino Transferase 29 U/L (14-36); Bilirubin,Total 0.6 mg/dL (0.2-1.3); Blood Urea Nitrogen 22 mg/dL (7-17); Calcium 9.7 mg/dL (8.4-10.2); Carbon Dioxide 28 mmol/L (22-30); Chloride 99 mmol/L (98-107); Estimated CRCL calculation 51 ml/min; Estimated Glomerular Filt Rate > 60; Glucose 127 mg/dL (65-110); Sodium 135 mmol/L (137-145)
[2023-07-17 18:20] LABS: Troponin I < 0.012 ng/mL (0.000-0.034)
[2023-07-17 18:25] LABS: Eosinophils Absolute Manual 0.21 K/mm3 (0.02-0.5); Eosinophils Percent Manual 2 % (0-4); Lymphocytes Absolute Manual 5.67 K/mm3 (1.1-4.5); Monocytes Absolute Manual 0.64 K/mm3 (0.1-0.90); Monocytes Percent Manual 6 % (3-9); Neutrophils Percent Manual 39 % (46-73); Total Cells Counted 100
[2023-07-17 18:26] LABS: Platelet Estimate Adequate (Adequate); Schistocytes None Seen (NORMAL)
--- NOTE | 2023-07-17 20:22 | ED.GENADULT ---
HPI - General Adult General Chief complaint: Arrhythmia/Palpitations Stated complaint: afib Time Seen by Provider: 07/17/23 19:49 History of Present Illness HPI narrative: This is a 78-year-old female presenting to ED with a chief complaint of palpitations. Patient says that she has been having palpitations for the last 2 days. They come and go at random throughout the day. Not associated with chest pain difficulty breathing lower extremity edema or any other complaints. The did called her night worker earlier today who prescribed them some metoprolol. However the patient is very sensitive to medications and did not take it. She then came to the emergency department for evaluation. Patient has appointment with her night worker later this week. Related Data Home Medications Medication Instructions Recorded Confirmed multivitamin (Daily Multi-Vitamin 1 tablet PO DAILY 12/24/20 05/02/23 tablet) calcium carbonate 390 mg calcium 390 mg PO DAILY 01/14/21 05/02/23 (1,000 mg) tablet biotin 5 mg capsule 5 mg PO DAILY 04/14/22 05/02/23 cholecalciferol (vitamin D3) 25 25 mcg PO DAILY 04/14/22 05/02/23 mcg (1,000 unit) capsule ferrous gluconate 240 mg (27 mg 240 mg PO DAILY 04/14/22 05/02/23 iron) tablet (Ferate) Allergies Allergy/AdvReac Type Severity Reaction Status Date / Time sulfamethoxazole Allergy Intermediate Rash Verified 07/17/23 18:12 [From Bactrim] trimethoprim [From Bactrim] Allergy Intermediate Rash Verified 07/17/23 18:12 cimetidine [From Tagamet] Allergy Unknown Unknown Verified 07/17/23 18:12 levofloxacin Allergy Unknown Diarrhea Verified 07/17/23 18:12 magnesium stearate Allergy Unknown Other Verified 07/17/23 18:12 Penicillins Allergy Unknown Other Verified 07/17/23 18:12 COVID-19 vaccine, mRNA, Allergy Burning Verified 07/17/23 18:12 [id number], all over the body, dryness esomeprazole [From Nexium] Allergy Rash Verified 07/17/23 18:12 famotidine Allergy Muscle Pain Verified 07/17/23 18:12 ephedrine AdvReac Intermediate Palpitation Verified 07/17/23 18:12 s ciprofloxacin AdvReac Unknown Diarrhea Verified 07/17/23 18:12 Quinolones AdvReac Unknown Diarrhea Verified 07/17/23 18:12 Contrast Media Allergy Unknown Rash Uncoded 10/10/22 11:18 [facility] Past Medical History Medical History Chronic pain of both knees Costochondritis, acute Hematuria History of gastroesophageal reflux (GERD) HSV (herpes simplex virus) infection Irritable bowel syndrome Screening for hyperlipidemia Seborrheic dermatitis, unspecified Surgical History Surgical History Cataract extraction status, left eye (~2019) Cataract extraction status, right eye History of lumpectomy of right breast Family History Family History Father Hypertension, Onset Age: 81 Cerebrovascular accident, Onset Age: 81 Patient's father is , Onset Age: 81 Mother Hypertension Cerebrovascular accident Family history of diabetes mellitus in first degree relative Family history of malignant neoplasm of breast in first degree relative Family history of glaucoma Family history of heart disease in male family member before age 55 Sibling Malignant neoplasm of prostate Grandparent Hypertension Diabetes mellitus Other Family history of cardiovascular disease Social History Social History Smoking status: Never smoker Tobacco type: cigarettes Second hand tobacco smoke exposure: No Alcohol intake: never Substance use: never Lack of Transportation: No Lack of Food: Never True Current Housing: I Have Housing Concerned About Future Housing: No Difficulty Paying Gas/Electric Bills: No Difficulty Paying for Meds: No Currently Unemployed: No Difficulty w/ C
[2023-07-17 20:25] VITALS: PULSE 123
[2023-07-17] MEDS: SODIUM CHLORIDE 0.9% IV 1,000 ML 999 ML IV CONT (20:25)
[2023-07-17] MEDS: METOPROLOL TARTRATE INJ 5 MG/5 ML VIAL IV PUSH (20:25)
[2023-07-17] MEDS: ONDANSETRON INJ 4 MG/2 ML VIAL IV PUSH (20:25)
[2023-07-17 21:00] VITALS: BP 136/77; PULSE 77; RESP 15; O2SAT 100
== END 2023-07-17 21:30 | disposition home or self-care (01) ==
PROVIDERS: Nurse Practitioner Family; Emergency Provider Emergency Medicine
DX: I48.92 Unspecified atrial flutter (principal); R00.2 Palpitations; I48.91 Unspecified atrial fibrillation
CPT/HCPCS: 36415; 71045; 80053; 84484; 85025; 93005; 96361; 96374; 96375; 99284; J2405; J7030

== ENCOUNTER 2023-07-19 05:01 | Emergency (ER) | payer MEDICARE, BC, OTHER, SELFPAY ==
[2023-07-19] VITALS (45 sets, daily range): BP systolic 126–169; BP diastolic 63–123; PULSE 74–112; RESP 13–30; TEMP 36.4; O2SAT 94–99
--- NOTE | ~2023-07-19 | XR_ITS ---
EXAMINATION: XR chest 1V portable DATE: 07/19/2023 06:20 INDICATION: Left shoulder and chest pain. TECHNIQUE: A single frontal view of the chest was obtained. COMPARISON: Chest single view 07/17/2023, chest CT 09/29 721 FINDINGS: There is mild atelectasis in the lower lung zones. There is mild scarring at the lung apice s. No pleural effusion or pneumothorax. Cardiomegaly is noted. IMPRESSION: 1. Mild atelectasis in the lower lung zones and mild scarring at the lung apices. 2. Cardiomegaly. Reviewed, dictated and finalized at location E. IMPRESSION: 1. Mild atelectasis in the lower lung zones and mild scarring at the lung apice s. 2. Cardiomegaly.
--- NOTE | 2023-07-19 05:04 | ECG_ITS ---
Measurements Intervals [place] Rate: 97 P: [place]: 0 QRS: 65 QRSD: 80 T: 31 QT: 326 QTc: 414 Interpretive Statements ATRIAL FLUTTER ABNORMAL ECG COMPARED TO ECG 07/17/2023 17:40:12 HEART RATE HAS DECREASED Electronically Signed On 07-19-2023 8:07:53 CDT by Dustin Mercedes D.O.
--- NOTE | 2023-07-19 06:10 | ED.GENADULT ---
HPI - General Adult General Chief complaint: Back Pain/Injury <Crow Blackburn MD - Last Filed: 07/19/23 06:43> Stated complaint: back pain <Crow Blackburn MD - Last Filed: 07/19/23 06:43> Time Seen by Provider: 07/19/23 05:59 <Crow Blackburn MD - Last Filed: 07/19/23 06:43> History of Present Illness HPI narrative: This is a 78-year-old female presenting to the ED with chief complaint of left shoulder and chest pain. Patient states that at 3:00 a.m. while she was trying to sleep she developed an achy / stabbing pain in her left shoulder blade that then moved to her neck and then her armpit and then the right side of her chest. It is 4/10 in intensity, constant, she has never experienced this before, worse with movement, with no alleviating factors. it is not associated with vomiting, diaphoresis exertion, lower extremity edema fever or chills. Patient was recently been diagnosed with AFib and was seen in our emergency department last night. She was treated with metoprolol and discharged with instructions to take metoprolol/xarelto. She has an appt to see her urology teacher this . Patient read on the Internet that women having heart attacks can present with back pain and wanted to be evaluated due to her recent trouble with atrial fibrillation. The goal of today's visit is to rule out an CT. <Crow Blackburn MD - Last Filed: 07/19/23 06:43> Related Data Home medications: Home Medications Medication Instructions Recorded Confirmed multivitamin (Daily Multi-Vitamin 1 tablet PO DAILY 12/24/20 05/02/23 tablet) calcium carbonate 390 mg calcium 390 mg PO DAILY 01/14/21 05/02/23 (1,000 mg) tablet biotin 5 mg capsule 5 mg PO DAILY 04/14/22 05/02/23 cholecalciferol (vitamin D3) 25 25 mcg PO DAILY 04/14/22 05/02/23 mcg (1,000 unit) capsule ferrous gluconate 240 mg (27 mg 240 mg PO DAILY 04/14/22 05/02/23 iron) tablet (Ferate) <Crow Blackburn MD - Last Filed: 07/19/23 06:43> Allergies/adverse reactions: Allergies Allergy/AdvReac Type Severity Reaction Status Date / Time sulfamethoxazole Allergy Intermediate Rash Verified 07/17/23 18:12 [From Bactrim] trimethoprim [From Bactrim] Allergy Intermediate Rash Verified 07/17/23 18:12 cimetidine [From Tagamet] Allergy Unknown Unknown Verified 07/17/23 18:12 levofloxacin Allergy Unknown Diarrhea Verified 07/17/23 18:12 magnesium stearate Allergy Unknown Other Verified 07/17/23 18:12 Penicillins Allergy Unknown Other Verified 07/17/23 18:12 COVID-19 vaccine, mRNA, Allergy Burning Verified 07/17/23 18:12 [id number], all over the body, dryness esomeprazole [From Nexium] Allergy Rash Verified 07/17/23 18:12 famotidine Allergy Muscle Pain Verified 07/17/23 18:12 ephedrine AdvReac Intermediate Palpitation Verified 07/17/23 18:12 s ciprofloxacin AdvReac Unknown Diarrhea Verified 07/17/23 18:12 Quinolones AdvReac Unknown Diarrhea Verified 07/17/23 18:12 Contrast Media Allergy Unknown Rash Uncoded 10/10/22 11:18 <Crow Blackburn MD - Last Filed: 07/19/23 06:43> [facility] Past Medical History Medical History: Medical History Chronic pain of both knees Costochondritis, acute Hematuria History of gastroesophageal reflux (GERD) HSV (herpes simplex virus) infection Irritable bowel syndrome Screening for hyperlipidemia Seborrheic dermatitis, unspecified <Crow Blackburn MD - Last Filed: 07/19/23 06:43> Surgical History Surgical History: Surgical History Cataract extraction status, left eye (~2019) Cataract extraction status, right eye History of lumpectomy of right breast <Crow Blackburn MD - Last Filed: 07/19/23 06:43> Family History Family History: Family History Father Hypertension, Onset Age: 81 Cerebrovasc
[2023-07-19 06:30] LABS: Basophils Absolute Auto 0.1 K/mm3 (0.0-0.1); Basophils Percent Auto 0.4 % (0.2-1.2); Eosinophils Absolute Auto 0.2 K/mm3 (0-0.3); Eosinophils Percent Auto 1.7 % (0-4.4); Hematocrit 42.1 % (37.0-47.0); Hemoglobin 13.9 g/dL (12.0-15.0); Immature Granulocyte Absolute 0.02 K/mm3 (0.00-0.031); Immature Granulocyte Percent A 0.2 % (0-0.5); Lymphocytes Percent Auto 45.9 % (18.3-44.2); Mean Corpuscular Hemoglobin 30.7 pg (26-34); Mean Corpuscular Volume 92.9 fl (80-100); Mean Platelet Volume 10.5 fl (7.4-10.4); Monocytes Absolute Auto 1.1 K/mm3 (0.1-0.6); Monocytes Percent Auto 8.9 % (2.6-8.5); Neutrophils Absolute Auto 5.2 K/mm3 (1.3-6.7); Neutrophils Percent Auto 42.9 % (45.5-73.1); Platelet Count Result 247 k/mm3 (150-375); Red Blood Count 4.53 M/mm3 (4.2-5.4); Red Cell Distribution Width 13.5 % (11.5-14.5); White Blood Count 12.2 K/mm3 (4.5-10.0)
[2023-07-19 06:40] LABS: Partial Thromboplastin Time 42.3 SECONDS (22.3-36.8)
[2023-07-19 06:43] LABS: INR 2.5; Prothrombin Time 28.8 Seconds (11.1-14.7)
[2023-07-19 06:44] LABS: Alanine Aminotransferase 23 U/L (6-35); Albumin Level 4.2 g/dL (3.5-5.1); Alkaline Phosphatase 62 U/L (38-126); Anion Gap 5 mmol/L (8-16); Aspartate Amino Transferase 26 U/L (14-36); Bilirubin,Total 0.5 mg/dL (0.2-1.3); Blood Urea Nitrogen 23 mg/dL (7-17); Calcium 9.4 mg/dL (8.4-10.2); Carbon Dioxide 27 mmol/L (22-30); Chloride 103 mmol/L (98-107); Estimated CRCL calculation 51 ml/min; Estimated Glomerular Filt Rate > 60; Glucose 108 mg/dL (65-110); Magnesium 2.3 mg/dL (1.6-2.3); Potassium 4.3 mmol/L (3.4-5.0); Sodium 135 mmol/L (137-145)
[2023-07-19 06:55] LABS: Troponin I < 0.012 ng/mL (0.000-0.034)
[2023-07-19 06:58] LABS: Atypical Lymphocytes Present; Platelet Estimate Adequate (Adequate); Schistocytes None Seen (NORMAL)
[2023-07-19 10:19] LABS: Troponin I < 0.012 ng/mL (0.000-0.034)
== END 2023-07-19 11:03 | disposition home or self-care (01) ==
PROVIDERS: Emergency Medicine; Emergency Provider Preventive Medicine Aerospace Medicine
DX: M25.512 Pain in left shoulder (principal); I48.91 Unspecified atrial fibrillation; K21.9 Gastro-esophageal reflux disease without esophagitis; K58.9 Irritable bowel syndrome, unspecified; Z98.42 Cataract extraction status, left eye; Z98.41 Cataract extraction status, right eye; Z79.01 Long term (current) use of anticoagulants; I48.92 Unspecified atrial flutter
CPT/HCPCS: 36415; 71045; 80053; 83735; 84484; 85025; 85610; 85730; 93005; 99284

== ENCOUNTER 2023-08-24 13:32 | Emergency (ER) | payer MEDICARE, BC, OTHER, SELFPAY ==
--- NOTE | 2023-08-24 13:46 | ED.URI ---
HPI - URI/Sore Throat General Chief Complaint: Upper Respiratory Infection Stated Complaint: COUGH/COLD/SORE THROAT/TIRED/CONGESTION Source: patient Mode of arrival: ambulatory Limitations: no limitations History of Present Illness HPI Narrative: 78-year-old female presented for complaint of sinus pressure, cough and chest congestion for almost 2 weeks, over the last few days she has had temperature up to 100.3, and reports fatigue. She also states she had an episode of heart racing 2 days ago after taking Robitussin DM. Endorses a history of atrial fibrillation, states she was unable to tolerate anticoagulant. She has not followed with repeater chief. Currently denies shortness of breath, wheezing, palpitations, chest pain, nausea, vomiting, diarrhea or lethargy. Related Data Home Medications Medication Instructions Recorded Confirmed multivitamin (Daily Multi-Vitamin 1 tablet PO DAILY 12/24/20 08/24/23 tablet) calcium carbonate 390 mg calcium 390 mg PO DAILY 01/14/21 08/24/23 (1,000 mg) tablet biotin 5 mg capsule 5 mg PO DAILY 04/14/22 08/24/23 cholecalciferol (vitamin D3) 25 25 mcg PO DAILY 04/14/22 08/24/23 mcg (1,000 unit) capsule ferrous gluconate 240 mg (27 mg 240 mg PO DAILY 04/14/22 08/24/23 iron) tablet (Ferate) aspirin 81 mg chewable tablet 08/24/23 Allergies Allergy/AdvReac Type Severity Reaction Status Date / Time sulfamethoxazole Allergy Intermediate Rash Verified 08/24/23 13:45 [From Bactrim] trimethoprim [From Bactrim] Allergy Intermediate Rash Verified 08/24/23 13:45 cimetidine [From Tagamet] Allergy Unknown Unknown Verified 08/24/23 13:45 levofloxacin Allergy Unknown Diarrhea Verified 08/24/23 13:45 magnesium stearate Allergy Unknown Other Verified 08/24/23 13:45 Penicillins Allergy Unknown Other Verified 08/24/23 13:45 COVID-19 vaccine, mRNA, Allergy Burning Verified 08/24/23 13:45 [id number], all over the body, dryness esomeprazole [From Nexium] Allergy Rash Verified 08/24/23 13:45 famotidine Allergy Muscle Pain Verified 08/24/23 13:45 ephedrine AdvReac Intermediate Palpitation Verified 08/24/23 13:45 s ciprofloxacin AdvReac Unknown Diarrhea Verified 08/24/23 13:45 Quinolones AdvReac Unknown Diarrhea Verified 08/24/23 13:45 Contrast Media Allergy Unknown Rash Uncoded 08/24/23 13:45 Review of Systems Review of Systems: CONSTITUTIONAL: Denies body aches, fever, chills, or sweats. EYES: Denies visual changes, redness, or discharge. ENT: Reports rhinorrhea, congestion, denies sore throat, or otalgia. CARDIOVASCULAR: Denies chest pain, palpitations, or edema. RESPIRATORY: Reports cough, denies sob, wheezing. GASTROINTESTINAL: Denies abdominal pain, nausea, vomiting, or diarrhea. GENITOURINARY: Denies dysuria or hematuria. SKIN: Denies rash, itching, or wounds. MUSCULOSKELETAL: Denies back pain, joint pain, or myalgia. NEUROLOGIC: Denies headache, numbness, tingling, or weakness. All systems reviewed & are unremarkable except as noted in HPI and below PMFSH Past Medical History Medical History Chronic pain of both knees Costochondritis, acute Hematuria History of gastroesophageal reflux (GERD) HSV (herpes simplex virus) infection Irritable bowel syndrome Screening for hyperlipidemia Seborrheic dermatitis, unspecified Surgical History Surgical History Cataract extraction status, left eye (~2019) Cataract extraction status, right eye History of lumpectomy of right breast Family History Family History Father Hypertension, Onset Age: 81 Cerebrovascular accident, Onset Age: 81 Patient's father is , Onset Age: 81 Mother Hypertension Cerebrovascular accident Family history of diabetes mellitus in first degree relative Family history of malignant neoplasm of breast in
[2023-08-24 13:47] VITALS: BP 153/72; PULSE 82; RESP 16; TEMP 36.6; O2SAT 97
--- NOTE | 2023-08-24 14:08 | ECG_ITS ---
Measurements Intervals [place] Rate: 77 P: 74 [place]: 142 QRS: 54 QRSD: 90 T: 37 QT: 376 QTc: 427 Interpretive Statements SINUS RHYTHM WITH OCCASIONAL SUPRAVENTRICULAR PREMATURE COMPLEXES COMPARED TO ECG 07/19/2023 05:08:07 SINUS RHYTHM NOW PRESENT Electronically Signed On 08-24-2023 19:17:58 [employer] by Nadeen Kong M.D.
== END 2023-08-24 14:34 | disposition home or self-care (01) ==
PROVIDERS: Emergency Provider Nurse Practitioner Family
DX: J06.9 Acute upper respiratory infection, unspecified (principal); K21.9 Gastro-esophageal reflux disease without esophagitis; Z98.41 Cataract extraction status, right eye; Z98.42 Cataract extraction status, left eye; I48.91 Unspecified atrial fibrillation; Z79.82 Long term (current) use of aspirin
CPT/HCPCS: 93005; 99213; G0463

== ENCOUNTER 2024-02-08 12:36 | Outpatient (CLI) | payer MEDICARE, BC, OTHER, SELFPAY ==
--- NOTE | ~2024-02-08 | US_ITS ---
EXAMINATION: US carotid duplex BI DATE: 02/08/2024 13:54 INDICATION: Visual changes. TECHNIQUE: Grayscale, color Doppler, and pulsed Doppler images of the cervical carotid arteries were obtained. The degree of vessel stenosis is placed in one of the following categories: normal, <50%, 5 0-69%, >=70% but less than near-occlusion, near-occlusion, or total occlusion. Note that percent sten osis relative to normal distal artery lumen diameter is indirectly measured from velocity measurement s as described by Kingsley, et al. Radiology 2003; 229:340-346. COMPARISON: None. FINDINGS: RIGHT: The right common carotid artery (CCA) peak systolic velocity (PSV) is 85 cm/s. The right internal car otid artery (ICA) PSV is 106 cm/s. The right ICA end-diastolic velocity (EDV) is 18 cm/s. The right I CA/CCA PSV ratio is 1.2. Grayscale and color Doppler images yield an estimate of <50% diameter reduct ion from plaque in the ICA. There is antegrade flow in the right vertebral artery. LEFT: The left CCA PSV is 98 cm/s. The left ICA PSV is 111 cm/s. The left ICA EDV is 22 cm/s. The left ICA/ CCA PSV ratio is 1.1. Grayscale and color Doppler images yield an estimate of <50% diameter reduction from plaque in the ICA. There is antegrade flow in the left vertebral artery. IMPRESSION: 1. <50% stenosis in the right internal carotid artery. 2. <50% stenosis in the left internal carotid artery. Reviewed, dictated and finalized at location A.
--- NOTE | ~2024-02-08 | MR_ITS ---
MRI of the brain Clinical History: Vision changes Technique: Axial and sagittal T1-weighted images were acquired. These were followed by axial T2-weigh kamilah, diffusion weighted, gradient, and FLAIR images. COMPARISON: 12/22/2017 Findings: There is no acute infarct, internal hemorrhage, or mass lesion. There are moderate chronic microvascular ischemic changes in the white matter, similar to mildly progressed from prior exam. Ventricles and subarachnoid spaces are unremarkable. Orbits are unremarkable. Paranasal sinuses and m astoid air cells are clear. Major intracranial flow voids are intact. Sagittal midline structures are intact. IMPRESSION: No acute abnormality. Moderate chronic microvascular ischemic changes. Reviewed, dictated and finalized at location M.
== END 2024-02-08 12:37 | disposition home or self-care (01) ==
LOC: ANHIMG 12:37
PROVIDERS: Visit Provider Family Medicine
DX: I65.23 Occlusion and stenosis of bilateral carotid arteries (principal); I67.82 Cerebral ischemia
CPT/HCPCS: 70551; 93880

== ENCOUNTER 2024-05-18 13:48 | Emergency (ER) | payer MEDICARE, BC, OTHER, SELFPAY ==
[2024-05-18 14:15] VITALS: BP 136/63; PULSE 68; RESP 16; TEMP 37; O2SAT 99
--- NOTE | 2024-05-18 14:56 | ED.EAR ---
HPI - Ear Problem General Chief complaint: Ear Stated complaint: Ear Pain Source: patient Mode of arrival: ambulatory Limitations: no limitations History of Present Illness HPI Narrative: 79 y/o female presented for c/o right ear pain for a few days. Endorses itching in the right ear for several days. Now with pain in front of ear and to a gland in the right neck. Today she noticed 'something black' come out of the ear when scratching it. Denies decreased hearing, tinnitus, ear drainage, dizziness, n/v/d/f/c. Complaint: ear pain Related Data Home Medications Medication Instructions Recorded Confirmed multivitamin (Daily Multi-Vitamin 1 tablet PO DAILY 12/24/20 08/24/23 tablet) calcium carbonate 390 mg PO DAILY 01/14/21 08/24/23 biotin 5 mg capsule 5 mg PO DAILY 04/14/22 08/24/23 cholecalciferol (vitamin D3) 25 25 mcg PO DAILY 04/14/22 08/24/23 mcg (1,000 unit) capsule ferrous gluconate 240 mg (27 mg 240 mg PO DAILY 04/14/22 08/24/23 iron) tablet (Ferate) aspirin 81 mg chewable tablet 81 mg PO DAILY 08/24/23 08/24/23 Allergies Allergy/AdvReac Type Severity Reaction Status Date / Time sulfamethoxazole Allergy Intermediate Rash Verified 08/24/23 13:45 [From Bactrim] trimethoprim [From Bactrim] Allergy Intermediate Rash Verified 08/24/23 13:45 cimetidine [From Tagamet] Allergy Unknown Unknown Verified 08/24/23 13:45 levofloxacin Allergy Unknown Diarrhea Verified 08/24/23 13:45 magnesium stearate Allergy Unknown Other Verified 08/24/23 13:45 Penicillins Allergy Unknown Other Verified 08/24/23 13:45 COVID-19 vaccine, mRNA, Allergy Burning Verified 08/24/23 13:45 [id number], all over the body, dryness esomeprazole [From Nexium] Allergy Rash Verified 08/24/23 13:45 famotidine Allergy Muscle Pain Verified 08/24/23 13:45 ephedrine AdvReac Intermediate Palpitation Verified 08/24/23 13:45 s ciprofloxacin AdvReac Unknown Diarrhea Verified 08/24/23 13:45 Quinolones AdvReac Unknown Diarrhea Verified 08/24/23 13:45 rivaroxaban [From Xarelto] AdvReac Other Verified 08/24/23 15:33 Contrast Media Allergy Unknown Rash Uncoded 08/24/23 13:45 Review of Systems Review of Systems: CONSTITUTIONAL: Denies malaise, chills, or fever. EYES: Denies visual changes, redness, or discharge. ENT: Denies rhinorrhea, congestion, sinus pain, and sore throat. Reports ear pain CARDIOVASCULAR: Denies chest pain, palpitations, or edema. RESPIRATORY: Denies cough or dyspnea. SKIN: Denies rash or itching. MUSCULOSKELETAL: Denies myalgia. NEUROLOGIC: Denies headache. All systems reviewed & are unremarkable except as noted in HPI and below PMFSH Past Medical History Medical History Chronic pain of both knees Costochondritis, acute Hematuria History of gastroesophageal reflux (GERD) HSV (herpes simplex virus) infection Irritable bowel syndrome Screening for hyperlipidemia Seborrheic dermatitis, unspecified Surgical History Surgical History Cataract extraction status, left eye (~2019) Cataract extraction status, right eye History of lumpectomy of right breast Family History Family History Father Hypertension, Onset Age: 81 Cerebrovascular accident, Onset Age: 81 Patient's father is , Onset Age: 81 Mother Hypertension Cerebrovascular accident Family history of diabetes mellitus in first degree relative Family history of malignant neoplasm of breast in first degree relative Family history of glaucoma Family history of heart disease in male family member before age 55 Sibling Malignant neoplasm of prostate Grandparent Hypertension Diabetes mellitus Other Family history of cardiovascular disease Social History Social History Smoking status: Never smoker T
== END 2024-05-18 15:31 | disposition home or self-care (01) ==
PROVIDERS: Emergency Provider Nurse Practitioner Family; PCP Family Medicine
DX: H66.91 Otitis media, unspecified, right ear (principal); T16.1XXA Foreign body in right ear, initial encounter; W44.9XXA Unspecified foreign body entering into or through a natural orifice, initial encounter; K21.9 Gastro-esophageal reflux disease without esophagitis; Z79.82 Long term (current) use of aspirin
CPT/HCPCS: 99213; G0463

== ENCOUNTER 2024-06-24 13:36 | Outpatient (CLI) | payer MEDICARE, BC, OTHER, SELFPAY ==
--- NOTE | ~2024-06-24 | MM_ITS ---
EXAMINATION: MM screening alysha BI w derrek HISTORY: Screening TECHNIQUE: Craniocaudal and mediolateral oblique 3-D tomosynthesis images were obtained and synthetic 2-D images were generated. CAD analysis was submitted and interpreted. COMPARISON: Comparison to multiple prior studies sequentially, with oldest reviewed study dated 10/2015. BREAST PARENCHYMAL COMPOSITION: Not dense: There are scattered areas of fibroglandular density. FINDINGS: There is no evidence of suspicious mass, calcification, or architectural distortion to sugg est malignancy in either breast. There has been no suspicious interval change. IMPRESSION: 1. No mammographic evidence of malignancy. 2. Recommend routine screening mammography in one year. BI-RADS Category 1: Negative Reviewed, dictated and finalized at location B.
== END 2024-06-24 13:37 | disposition home or self-care (01) ==
LOC: MICIMG 13:37
PROVIDERS: PCP Obstetrics & Gynecology; Visit Provider Family Medicine
DX: Z12.31 Encounter for screening mammogram for malignant neoplasm of breast (principal)
CPT/HCPCS: 77063; 77067

== ENCOUNTER 2024-08-23 15:38 | Emergency (ER) | payer MEDICARE, BC, OTHER, SELFPAY ==
--- NOTE | 2024-08-23 15:41 | ED.URI ---
HPI - URI/Sore Throat General Chief Complaint: Upper Respiratory Infection Stated Complaint: Sore Throat Time Seen by Provider: 08/23/24 15:39 Source: patient Mode of arrival: ambulatory Limitations: no limitations History of Present Illness HPI Narrative: Ileana is a 79-year-old female patient presenting to the clinic today with complaints of a sore throat, cough, nasal congestion, fatigue, and nausea. She reports symptoms have been going on for 2 days. Took at home COVID test yesterday and was negative. Denies any fevers, chills, or body aches. Denies any chest pain or shortness of breath MD elicited complaint: sore throat and nasal congestion Related Data Home Medications Medication Instructions Recorded Confirmed multivitamin (Daily Multi-Vitamin 1 tablet PO DAILY 12/24/20 08/23/24 tablet) calcium carbonate 390 mg PO DAILY 01/14/21 08/23/24 cholecalciferol (vitamin D3) 25 25 mcg PO DAILY 04/14/22 08/23/24 mcg (1,000 unit) capsule ferrous gluconate 240 mg (27 mg 240 mg PO DAILY 04/14/22 08/23/24 iron) tablet (Ferate) aspirin 81 mg chewable tablet 81 mg PO DAILY 08/24/23 08/23/24 magnesium 200 mg tablet 200 mg PO DAILY 07/24/24 08/23/24 Allergies Allergy/AdvReac Type Severity Reaction Status Date / Time sulfamethoxazole Allergy Intermediate Rash Verified 08/23/24 15:48 [From Bactrim] trimethoprim [From Bactrim] Allergy Intermediate Rash Verified 08/23/24 15:48 cimetidine [From Tagamet] Allergy Unknown Unknown Verified 08/23/24 15:48 levofloxacin Allergy Unknown Diarrhea Verified 08/23/24 15:48 magnesium stearate Allergy Unknown Other Verified 08/23/24 15:48 Penicillins Allergy Unknown Other Verified 08/23/24 15:48 COVID-19 vaccine, mRNA, Allergy Burning Verified 08/23/24 15:48 [id number], all over the body, dryness esomeprazole [From Nexium] Allergy Rash Verified 08/23/24 15:48 famotidine Allergy Muscle Pain Verified 08/23/24 15:48 ephedrine AdvReac Intermediate Palpitation Verified 08/23/24 15:48 s ciprofloxacin AdvReac Unknown Diarrhea Verified 08/23/24 15:48 Quinolones AdvReac Unknown Diarrhea Verified 08/23/24 15:48 rivaroxaban [From Xarelto] AdvReac Other Verified 08/23/24 15:48 Contrast Media Allergy Unknown Rash Uncoded 08/23/24 15:48 Review of Systems Review of Systems: Pertinent positives per HPI. Patient denies any fever, chills, rash, headache, visual changes, dizziness, cough, shortness of breath, chest pain, palpitations, nausea, vomiting, diarrhea, constipation, abdominal pain, or any urinary issues. [facility] Past Medical History Medical History Chronic pain of both knees Costochondritis, acute Hematuria History of gastroesophageal reflux (GERD) HSV (herpes simplex virus) infection Irritable bowel syndrome Macular degeneration Screening for hyperlipidemia Seborrheic dermatitis, unspecified Surgical History Surgical History Cataract extraction status, left eye (~2019) Cataract extraction status, right eye History of lumpectomy of right breast Family History Family History Father Hypertension, Onset Age: 81 Cerebrovascular accident, Onset Age: 81 Patient's father is , Onset Age: 81 Mother Hypertension Cerebrovascular accident Family history of diabetes mellitus in first degree relative Family history of malignant neoplasm of breast in first degree relative Family history of glaucoma Family history of heart disease in male family member before age 55 Sibling Malignant neoplasm of prostate Grandparent Hypertension Diabetes mellitus Other Family history of cardiovascular disease Social History Social History Smoking status: Never smoker Tobacco type: cigarettes Second hand tobacco smoke exposure: No Alcohol intake: never Substance use: never Lack of Transportation: No Lack of Food: Never True Current Housing: I Have Housing Concerned About Future Housing: No Difficulty Paying Gas/Electric Bills: No Difficulty Paying for Meds: No Currently Unemployed: No Difficulty w/ Childcare or Family Care: No Living arrangements: with family Additional living arrangements comments: Spouse Occupation/Education: retired Gender identity (if verbalized by the patient): Female Sexual Orientation (if Verbalized by the Patient): Straight or Heterosexual Spiritual care concerns: No Comments At the time of my signature, I reviewed and agree with the nursing past medical, surgical, social, and family history. There is no relevant family history pertinent to the patient complaint. Exam Narrative: General: Well-developed, well nourished, in no apparent distress Head: Normocephalic, atraumatic Eyes: Pupils equally round and reactive to light bilaterally, EOM intact, sclera and conjunctive clear, no discharge, lids normal Ears: TMs intact and clear, ear canals clear, no drainage, grossly hearing normal. Nose: Nares patent, clear nasal discharge, no inflammation, no sinus tenderness. Mouth: Oral pharynx without lesions or masses, good dentition, MMM. Postnasal drip Neck: Supple, trachea midline, no enlargement of anterior or posterior cervical nodes, no thyroid masses or goiter palpable. Cardio: Regular rate and rhythm, s1 and s2 normal, no murmur appreciated. Resp: Clear to auscultation bilaterally, no rhonchi, rales, wheezing or rubs Course Course Emergency Course: Portions of this record may have been created with voice recognition software. Level of Care: Express Care Visit Vital Signs Vital signs: Vital Signs Temperature 37.3 C 08/23/24 15:54 Pulse Rate 87 08/23/24 15:54 Respiratory Rate 16 08/23/24 15:54 Blood Pressure 176/77 H 08/23/24 15:54 Pulse Oximetry 98 08/23/24 15:54 Temperature 37.3 C 08/23/24 15:54 Pulse Rate 87 08/23/24 15:54 Respiratory Rate 16 08/23/24 15:54 Blood Pressure 176/77 H 08/23/24 15:54 Pulse Oximetry 98 08/23/24 15:54 Vital signs reviewed MDM - URI/Sore Throat MDM Narrative Medical decision making narrative: At the time of visit patient is resting comfortably on the exam table. Patient appears to be nontoxic. Labs: COVID, influenza, and strep test was performed. All testing was negative in the clinic today. Plan: I suspect patient has URI with cough and congestion. Supportive measures were discussed with the patient and they voiced understanding discharge instructions and agrees to treatment plan. Return precautions reviewed Differential Diagnosis Differential diagnosis: Likely upper respiratory infection, otitis media, sinusitis, viral infection, bronchitis, influenza, pharyngitis and other (COVID) Lab Data Labs: Lab Results 08/23/24 08/23/24 Range/Units 16:01 16:12 POC Influenza A Ag Negative (Negative) POC Influenza B Ag Negative (Negative) POC SARS CoV-2 Ag Negative (Negative) POC Grp A Strep Screen Negative (Negative) Discharge Plan Discharge Clinical Impression: URI with cough and congestion Patient Disposition: Home, Self-Care Condition: Stable Instructions: Antibiotic Form, Upper Respiratory Infection (ED) Additional Instructions: COVID, influenza, and strep test were all negative in the clinic today. May take Mucinex twice a day for cough to help liquify secretions May take Delsym at nighttime to help with cough so you can sleep Increase fluids and stay well hydrated Tylenol/motrin for pain/fever Flonase and OTC antihistamines as directed Vicks vapor rub to open sinuses Sinus rinses for congestion Cepacol spray, cough drops, throat lozenges, warm tea with honey/lemon, gargle salt water to soothe throat BRAT diet for diarrhea Clear liquids x 24 hours then advance as tolerated for nausea/vomiting Go to the ED if you develop a worsening in your condition- high fever not controlled by Tylenol or Motrin, dehydration, weakness, lethargy, shortness of breath, or chest pain. Follow up with your PCP in 3-5 days if symptoms persist. Prescriptions: No Action aspirin 81 mg tablet,chewable 81 mg PO DAILY magnesium 200 mg tablet 200 mg PO DAILY multivitamin [Daily Multi-Vitamin] Tablet 1 tablet PO DAILY calcium carbonate 390 mg calcium (1,000 mg) tablet 390 mg PO DAILY cholecalciferol (vitamin D3) 25 mcg (1,000 unit) capsule 25 mcg PO DAILY ferrous gluconate [Ferate] 240 mg (27 mg iron) tablet 240 mg PO DAILY Follow-up/Referrals: Denise,Marty Lopez MD [Primary Care Provider] - Time of Disposition: 16:21 Quality NIHSS Nursing Documentation ED NIHSS nursing documentation: reviewed/agree
[2024-08-23 15:54] VITALS: BP 176/77; PULSE 87; RESP 16; TEMP 37.3; O2SAT 98
[2024-08-23 16:03] LABS: EDSTREPNEGPOS1 Negative (Negative)
[2024-08-23 16:14] LABS: EDCOVIDSCREEN Negative (Negative); EDINFLUASCREEN Negative (Negative); EDINFLUBSCREEN Negative (Negative)
== END 2024-08-23 16:27 | disposition home or self-care (01) ==
PROVIDERS: Emergency Provider Nurse Practitioner Family; PCP Family Medicine
DX: J06.9 Acute upper respiratory infection, unspecified (principal); R05.9 Cough, unspecified; Z20.822 Contact with and (suspected) exposure to COVID-19; K21.9 Gastro-esophageal reflux disease without esophagitis; H35.30 Unspecified macular degeneration; Z98.42 Cataract extraction status, left eye; Z98.41 Cataract extraction status, right eye; Z79.82 Long term (current) use of aspirin
CPT/HCPCS: 87426; 87804; 87880; 99213; G0463

== ENCOUNTER 2025-01-22 08:51 | Outpatient (CLI) | payer MEDICARE, BC, OTHER, SELFPAY ==
--- NOTE | ~2025-01-22 | DEXA_ITS ---
Bone Density Report Name: DEEP FOSTER Age: 79 Sex: Female Ethnicity: White Date of : 1945 Indication: postmenopausal; screening for osteoporosis; parental hip fracture; Referring Provider: ANITA OSORIO Study: Bone densitometry was performed. Exam Date: January 22, 2025 Accession number: [id number] Bone Density: Region BMD T-score Z-score Classification AP Spine(L1-L4) 0.779 -2.4 0.3 Osteopenia Femoral Neck (Left) 0.682 -1.5 0.8 Osteopenia Total Hip (Left) 0.879 -0.5 1.6 Normal Femoral Neck (Right) 0.678 -1.5 0.8 Osteopenia Total Hip (Right) 0.857 -0.7 1.4 Normal Total Hip Mean 0.868 -0.6 1.5 Normal World Health Organization criteria for BMD impression classify patients as: Normal (T-score at or above -1.0), Osteopenia (T-score between -1.0 and -2.5), or Osteoporosis (T-score at or below -2.5). 10-year Fracture Risk(1): Major Osteoporotic Fracture 23% Hip Fracture 14% Reported Risk Factors: [place] (), Neck BMD=0.682, BMI=23.7, parental fracture (1) FRAX(R) Version 3.08. Fracture probability calculated for an untreated patient. Fracture probability may be lower if the patient has received treatment. Clinical Information Provided by Patient: Parent has had a hip fracture Has used the following medications: Vitamin D, Calcium Patient maximum height was 65 Menopause Age: 51 No regular weight bearing exercise Onset of menses at age 12 Number of children 1 Impression: The patient has low bone mass, based on the Total Spine T-score. The patient has an estimated ten-year risk of hip fracture of 14% and an estimated ten-year risk of major fracture of 23%, based on the WHO FRAX algorithm. The patient has risk factors, including: parental hip fracture. Discussion: BONE DENSITY IS LOW AT ONE OR MORE SKELETAL SITES. THE PATIENT'S BMD AND CLINICAL RISK FACTORS CONTRIBUTE TO THIS PATIENT'S HIGH RISK OF FRACTURE. This patient's lowest T-score is low at one or more skeletal sites. It meets the World Health Organization's (WHO) criteria for ?low bone mass? (T-score between -1.0 and -2.5). The patient's 10-year risk of hip fracture and 10 year risk of a major osteoporotic fracture as calculated by FRAX exceeds the threshold where pharmacological therapy is recommended by the National Osteoporosis Foundation (NOF). However, all treatment decisions require clinical judgment and consideration of individual patient factors, including patient preferences, comorbidities, previous drug use, risk factors not captured in the FRAX model (e.g., frailty, falls, vitamin D deficiency, increased bone turnover, interval significant decline in bone density) and possible under or overestimation of fracture risk by FRAX. The patient should follow a healthful lifestyle (good nutrition with adequate calcium and vitamin D, and appropriate weight-bearing exercise). Follow-Up: Consider a repeat BMD and Vertebral Fracture Assessment (VFA) exam in 2 years or sooner if medically necessary, to reassess this patient's status. Reported by: ERICA on 01/22/2025 9:31:00 AM. Reviewed, dictated and finalized at location A.
--- OUTSIDE RECORDS SUMMARY | 2025-01-22 09:05 | XMS_ITS | Encounter Summary ---
Author Organization [facility] Address [address] [place] [address] Care Team Providers Care Flight Manager Name Role Phone Margi Carrero MD Primary Care Provider + Encounter Details Date Type Department Care Team (Late Contact Info) Description 05/14/2021 Prep for Procedure [facility] [address] [place], [place] [id number] Nicolás Lorenzo MD [address] [facility] [address] [place] [address] Social History Tobacco Use Types Packs/Day Years Used Date Smoking Tobacco: Never Smokeless Tobacco: Never Alcohol Use Standard Drinks/Week Comments Not Currently 0 (1 standard drink = 0.6 oz pur e alcohol) Comments No Sex and Gender Information Value Date Recorded Sex Assigned at Not on file Legal Sex Female 1:14 PM CDT Gender Identity Not on file Sexual Orientation Not on file COVID-19 Exposure Response Date Recorded In the last month, have you been in contact with someone who was confirmed or suspected to have Coronavirus / COVID-19? No / Unsure 05/14/2021 1:34 PM CDT documented as of this encounter Plan of Treatment Upcoming Encounters Date Type Department Care Team (Late Contact Info) Description 01/28/2025 2:00 PM CDT Office Visit [facility] Medical Group Multispecialty Care - [address] [place] [address] Miller Beavers PA-C 3 [facility] [address] [place] [address] documented as of this encounter Results * PRE-SURGICAL/PRE-PROCEDURE CORONAVIRUS (COVID 19) (05/18/2021 1:15 PM CDT) SPECIMEN SOURCE NASAL 1:[address] [facility] CORONAVIRUS SARS COV 2 PCR (RESP) NEGATIVE NEGATIVE 05/20/2021 1:04 AM CDT [facility] Comment: THE SARS-CoV-2 TEST HAS BEEN AUTHORIZED BY THE FDA UNDER AN EUA FOR USE BY AUTHORIZED LABORATORIES. PERFORMED BY NUCLEIC ACID AMPLIFICATION PCR FIRST TEST UNKNOWN 05/18/2021 1:[address] [facility] EMPLOYED IN HEALTHCARE NO 05/18/2021 1:[address] [facility] SYMPTOMATIC DEFINED BY CDC NO 05/18/2021 1:[address] [facility] HOSPITALIZATION STATUS NO 05/18/2021 1:[address] [facility] PATIENT IN ICU NO 05/18/2021 1:[address] [facility] RESIDENT OF [facility] NO 05/18/2021 1:[address] [facility] NASAL STRUCTURE / Unknown 05/18/2021 1:15 PM CDT Nicolás Lorenzo MD MICROBIOLOGY - GENERAL ORDERABLE S Final Result [facility] [address] [place] [address], [place] [phone] [facility] [address] [place] [address], [place] [phone] documented in this encounter Visit Diagnoses Diagnosis Preop testing- Primary Preoperative examination, unspecified documented in this encounter Additional Health Concerns Infection Onset Date Last Indicated Resolved Time COVID-19 Rule Out 05/18/2021 05/18/2021 05/20/2021 1:04 AM CDT COVID-19 Rule Out 07/25/2021 07/25/2021 07/26/2021 11:04 AM QUALITY REVIEW SPECIALIST documented as of this encounter Care Teams Flight Manager Relationship Specialty [place] [address] [address] [facility] [address] [facility] [place] [address] PCP - General INTERNAL MEDICINE 02/22/21 documented as of this encounter
--- OUTSIDE RECORDS SUMMARY | 2025-01-22 09:05 | XMS_ITS | Encounter Summary ---
Author Organization [facility] Address [address] [place] [address] Care Team Providers Care Supervisor Ship Maintenance Services Name Role Phone None, Provider Primary Care Provider Margi Seals MD Primary Care Provider + Encounter Details Date Type Department Care Team (Late Contact Info) Description 02/17/2021 Prep for Procedure [facility] [place] [address] Nicolás Lorenzo MD 3 [facility] [address] [place] [address] Social History Tobacco Use Types Packs/Day Years Used Date Smoking Tobacco: Never Assessed Comments Unknown Sex and Gender Information Value Date Recorded Sex Assigned at Not on file Legal Sex Female 1:14 PM CDT Gender Identity Not on file Sexual Orientation Not on file COVID-19 Exposure Response Date Recorded In the last month, have you been in contact with someone who was confirmed or suspected to have Coronavirus / COVID-19? No / Unsure 02/17/2021 1:58 PM CDT documented as of this encounter Plan of Treatment Upcoming Encounters Date Type Department Care Team (Late Contact Info) Description 01/28/2025 2:00 PM CDT Office Visit [facility] Medical Group Multispecialty Care - [facility] [address] [facility] [place] [id number] Miller Beavers PA-C [address] [facility] [address] [place] [address] documented as of this encounter Results * PRE-SURGICAL/PRE-PROCEDURE CORONAVIRUS (COVID 19) (02/22/2021 10:39 AM CDT) CORONAVIRUS SARS COV 2 PCR (RESP) NOT DETECTED NOT DETECTED 02/23/2021 2:16 PM CDT [facility] Comment: A Not Detected (negative) test result for this test means that SARS-CoV-2 RNA was not present in the specimen above the limit of detection. A negative result does not rule out the possibility of COVID-19 and should not be used as the sole basis for treatment or patient management decisions. If COVID-19 is still suspected, based on exposure history together with other clinical findings, re-testing should be considered in consultation with public health authorities. Laboratory test results should always be considered in the context of clinical observations and epidemiological data in making a final diagnosis and patient management decisions. This patient specimen was tested using an FDA EUA pooling method. Negative results from pooled testing should not be treated as definitive. If the patient's clinical signs and symptoms are inconsistent with a negative result or results are necessary for patient management, then the patient should be considered for individual testing. In very rare cases, estimated at about 8 in 1,000 (0.8%) or less patient specimens with low viral loads may not be detected in sample pools due to the decreased sensitivity of pooled testing. Please review the Fact Sheets and FDA authorized labeling available for health care providers and patients using the following websites: https://www.NineSixFive.com/home/Covid-19/HCP/rc- xrei-qiy6-tlhw-sheet.html https://www.[employer] It Original/home/Covid-19/Patients/ eo-nvvk-xok4-fact-sheet.html This test has been authorized by the FDA under an Emergency Use Authorization (EUA) for use by authorized laboratories. Due to the current public health emergency, [facility] is receiving a high volume of samples from a wide variety of swabs and media for COVID-19 testing. In order to serve patients during this public health crisis, samples from appropriate clinical sources are being tested. Negative test results derived from specimens received in non-commercially manufactured viral collection and transport media, or in media and sample collection kits not yet authorized by FDA for COVID-19 testing should be cautiously evaluated and the patient potentially subjected to extra precautions such as additional clinical monitoring, including collection of an additional specimen. Methodology: Nucleic Acid Amplification Test (NAAT) includes RT-PCR or TMA Additional information about COVID-19 can be found at the [facility] website: www.CooCoo/Covid19. Test performed at [facility] [place] [address] [place] [address] Director: IVON ERICKSON DO,MPH FIRST TEST NO 02/22/2021 11:07 AM CDT [facility] EMPLOYED IN HEALTHCARE NO 02/22/2021 11:07 AM CDT [facility] SYMPTOMATIC DEFINED BY CDC NO 02/22/2021 11:07 AM CDT [facility] DATE OF SYMPTOM ONSET UNKNOWN 02/22/2021 11:27 AM CDT [facility] HOSPITALIZATION STATUS NO 02/22/2021 11:07 AM CDT [facility] PATIENT IN ICU NO 02/22/2021 11:07 AM CDT [facility] RESIDENT OF [facility] NO 02/22/2021 11:07 AM CDT [facility] UNKNOWN 02/22/2021 11:27 AM CDT [facility] PATIENT'S RACE WHITE OR 02/22/2021 11:07 AM CDT [facility] ETHNICITY NONHISPANIC 02/22/2021 11:07 AM CDT [facility] SOURCE (QST) NASOPHARYNGEAL SWAB 02/22/2021 11:07 AM CDT [facility] NASOPHARYNGEAL SWAB / Unknown 02/22/2021 10:39 AM CDT us Nicolás Lorenzo MD MICROBIOLOGY - GENERAL ORDERABLE S Final Result [facility] [address] [place] [address], [place] [phone] [facility] [address] [place] [address], documented in this encounter Visit Diagnoses Diagnosis Epigastric pain- Primary Abdominal pain, epigastric documented in this encounter Additional Health Concerns Infection Onset Date Last Indicated Resolved Time COVID-19 Rule Out 02/22/2021 02/22/2021 02/23/2021 2:16 PM CDT COVID-19 Rule Out 05/18/2021 05/18/2021 05/20/2021 1:04 AM CDT COVID-19 Rule Out 07/25/2021 07/25/2021 07/26/2021 11:04 AM CLOTH 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
--- OUTSIDE RECORDS SUMMARY | 2025-01-22 09:05 | XMS_ITS | Clinical Summary ---
Author Organization [facility] Address [address] [place] [address] Care Team Providers Care Program/Music Director Name Role Phone Nazia Whatley MD Unavailable [phone] Manohar Delgado MD Unavailable Lex Heredia MD Unavailable Sarabjit Soria MD Primary Care Provider Source Comments [facility],non-owned Affiliates and Associated Physician Practices is amultiple site organization consisting of ambulatory clinics and hospital sitesin [place], [place], [place] and [place]. This disclosure is being madepursuant to the Care Everywhere program and may not contain all information available regarding this patient. Last updated 18.[facility] Allergies Active Allergy Reactions Criticality Noted Date Comments Adhesive Sensitivity 05/27/2014 Ciprofloxacin 11/19/2013 Clindamycin Palpitations Low 06/05/2019 Epinephrine 11/19/2013 Hyper Latex 11/19/2013 Levofloxacin 11/19/2013 Penicillins 11/19/2013 Medications * Be aware that medications may not be up to date on this document. Alwaysverify current medications with the patient. MAGNESIUM PO 200 Devices. Acti ve Other Enteragam Active nortriptyline (PAMELOR) 10 MG capsule Take 1 Cap by mouth at bedtime. 30 Cap 5 4 Active Additional Information Patient not taking.Reported on 05/08/2019 Cholecalciferol (VITAMIN D PO) once daily. Act shahnaz Calcium Carbonate-Vit D-Min (CALCIUM 1200 PO)Indications:C ubital tunnel syndrome, right,Cervicalgi a,Arm pain, unspecified laterality,Back pain,Leg pain, unspecified laterality,Cervi eduardo spondylosis Take by mouth. Active multivitamin daily (THERAGRAN) tablet Take 1 Tab by mouth. EVERY OTHER DAY Active Methylcellulose, Laxative, (CITRUCEL PO) Take by mouth. 1 1/2 TABLESPOON ONCE A DAY Active Probiotic Product (SOLUBLE FIBER/PROBIOTICS PO) Active ferrous sulfate 325 (65 FE) MG tablet Take 325 mg by mouth as needed Active omega 3 (FISH OIL) 1200 MG capsule Take 1,200 mg by mouth Two times a week Active esomeprazole (NEXIUM) 20 MG capsule Take 20 mg by mouth daily before breakfast Active Active Problems Problem Noted Date Diagnosed Date Multiple thyroid nodules Adrenal adenoma History of kidney stones Spondylolysis of cervicothoracic region Lymphocytosis Osteoporosis Family History Medical History Relation Name Comments Cancer Brother 3 Arthritis - Rheumatoid Father Asthma Father Cancer - Other Father Cataract Father Hypertension Father Rashes/Skin Problems Father Stroke Father Arthritis - Rheumatoid Mother CAD (Coronary Artery Disease) Mother Cancer Mother breast Cataract Mother Diabetes Mother Heart Failure Mother Rashes/Skin Problems Mother Stroke Mother Arthritis - Rheumatoid Sister 2 Relation Name Status Comments Brother 1 (Age 72) Prostate C A Brother 2 Alive x2 Healthy Brother 3 Child Alive x1 tendonitis,P olycystic ovarian disease Father (Age 81) Stroke Mother (Age 87) Heart fail ure and DM Sister 1 Alive x1 Hep A,Gallst ones Sister 2 Social History Tobacco Use Types Packs/Day Years Used Date Smoking Tobacco: Never Smokeless Tobacco: Never Alcohol Use Standard Drinks/Week Comments No 0 (1 standard drink = 0.6 oz pur e alcohol) Comments Unknown Sex and Gender Information Value Date Recorded Sex Assigned at Not on file Legal Sex Female 2:07 PM SOAP SLABBER Gender Identity Not on file Sexual Orientation Not on file Occupation Industry Job Start Date Job End Date Retired Not on file Not on file Not on file Last Filed Vital Signs Vital Sign Reading Time Taken Comments Blood Pressure 116/68 03/30/2020 10:59 AM CDT Pulse 76 03/30/2020 10:59 AM CDT Temperature - - Respiratory Rate 17 03/30/2020 10:59 AM CDT Oxygen Saturation 98% 03/30/2020 10:59 AM CDT Inhaled Oxygen Concentration - - Weight 59 kg (130 lb) 03/30/2020 10:59 AM CDT Height 165.1 cm (5' 5 ) 03/30/2020 10:59 AM CDT Body Mass Index 21.63 03/30/2020 10:59 AM CDT Plan of Treatment Health Maintenance Due Date Last Done Comments BONE DENSITY TESTING 1944 DTAP/TDAP/TD VACCINES (1 - Tdap) 1963 PNEUMOCOCCAL VACCINE 50+ (1 of 1 - PCV) 1994 ZOSTER VACCINE (1 of 2) 1994 Respiratory Syncytial Virus (RSV) Vaccine Pt: or over 60 yrs (1 - 1-dose 75+ series) 2019 COVID-19 VACCINE (1 - 2023-2 5 season) 2024 DEPRESSION SCREENING 09/18/2024 INFLUENZA VACCINE (Season Ended) 2025 06/18/2019, 09/29/2017, 09/18/2017 HEPATITIS B VACCINE Aged Out No longe r eligible based on patient's age to complete this topic HIB VACCINE Aged Out No longer eligi ble based on patient's age to complete this topic HPV VACCINE Aged Out No longer eligi ble based on patient's age to complete this topic MENINGOCOCCAL (Group B) VACCINE SHARED DECISION-MAKING Aged Out No longer eligible based on patient's age to complete this topic MENINGOCOCCAL GROUPS A/C/Y/W VACCINE Aged Out No longer eligible b ased on patient's age to complete this topic Insurance MEDICARE ANTHEM MEDICARE ANTHEM Care Teams Program/Music Director Relationship Specialty Start Date End Date Sarabjit Soria MD [address] [place] [address] PCP - General 04/09/19 [place] [address] [place] [address] Orthopedic Surgery 05/27/14 [place] [address] [place] [address] Anesthesiology-Pain Management 08/05/14 [place] [address] [place] [address] Urology 10/28/14
--- OUTSIDE RECORDS SUMMARY | 2025-01-22 09:05 | XMS_ITS | Clinical Summary ---
Author Organization [facility] al Address [address] [place] [address] Care Team Providers Care Trimming Machine Set Up Operator Name Role Phone Margi Gallegos MD Primary Care Pr ovider Remberto Sousa MD Unavailable [phone] Allergies Active Allergy Reactions Criticality Noted Date Comments Adhesive Tape-Silicones Rash Medium Alpha 1 Susan- Quinazolines Diarrhea,Muscle pain Medium 11/11/2013 Amoxicillin Ciprofloxacin Diarrhea Medium Clindamycin Palpitations Low 06/05/2019 Iodinated Contrast Media Rash Medium 06/18/2018 Epinephrine Shortness of breath,Palpitations,Ot her (See comments) High Reaction: tachycardia, tremor, SOB, Latex Rash Medium 11/19/2013 Levofloxacin Other (See comments) Low 06/18/2018 Tendonitis and muscle burning Penicillins Potassium Medications multivitamin tablet tabletIndications: Vitamin Deficiency Prevention Take 1 tablet by mouth. Active ketoconazole (NIZORAL) 2 % shampoo Apply to the face and scalp and rinse once daily 120 mL 2 06/18/20 18 Active hydrocortisone 2.5 % cream Apply to the face daily as needed 28 g 2 06/18/20 18 Active cholecalciferol (VITAMIN D-3) 1,000 unit daily. 05/19/20 17 Active triamcinolone (KENALOG) 0.1 % cream JAYDA A THIN LAYER TOPICALLY TO THE ABDOMEN BID 0 05/25/20 18 Active polyethylene glycol-electrolyte s (NULYTELY) 420 gram solutionIndication s:Bowel Evacuation TK UTD 0 04/23/20 18 Active Lactobacillus acidophilus (ACIDOPHILUS) tablet,chewable Take by mouth. Active olopatadine (PATADAY) 0.2 % ophthalmic solutionIndication s:Allergic Conjunctivitis INSTILL 1 DROP DAILY IN EACH EYE PRN 02/09/20 17 Active ILEVRO 0.3 % drops,suspension INT 1 GTT INTO AEY QD STARTING 2 DAYS BEFORE SURGERY UTD 1 05/24/20 18 Active naproxen (NAPROSYN) 500 mg tablet TAKE 1 TABLET TWICE DAILY NEEDED. 11/23/19 18 Active multivitamin,tx-mi nerals (VITAMINS AND MINERALS) tablet Take 1 tablet by mouth. Active moxifloxacin (VIGAMOX) 0.5 % ophthalmic solution INT 1 GTT SURGICAL EYE TID DIRECTED. BEGIN 2 DAYS B SURGERY 1 05/23/20 18 Active magnesium sulfate 100 mg capsule 200 Devices. Ac tive DUREZOL 0.05 % drops INT 1 GTT SURGICAL EYE QD STARTING AFTER SURGERY AND. CONT FOR 3 WKS 1 05/23/20 18 Active cholecalciferol (VITAMIN D3) 2,000 unit capsule once daily. Activ e acyclovir (ZOVIRAX) 400 mg tablet daily. 02/09/20 17 Active zinc gluconate 30 mg tablet Take by mouth. Activ e raNITIdine (ZANTAC) 150 mg tablet Take 150 mg by mouth. Active pantoprazole DR (PROTONIX) 40 mg EC tablet TK 1 T PO Q DAY AC 6 06/27/20 18 Active loratadine (CLARITIN) syrup 5 mg/5 mL Take 5 mg by mouth. Active calcium carbonate ([id number]) 1,250 MG (500 mg of elemental calcium) tablet Take 500 mg by mouth. Active sertraline (ZOLOFT) 50 mg tablet Take 1 tablet (50 mg total) by mouth daily. 30 tablet 3 07/31/20 18 Active omeprazole (PriLOSEC) 20 mg capsule Take 20 mg by mouth daily Active omega-3 fatty acids-fish oil (ONE-PER-DAY OMEGA-3) 684-1,200 mg capsule,delayed release(DR/EC) Take 1,200 mg by mouth 2 (two) times a week Active preservative free dexamethasone ophthalmic solution 0.1 % Administer 1 drop into the left eye 4 (four) times a day 10 mL 11 06/05/20 Active cyanocobalamin, vitamin B-12, 1,000 mcg/mL drops Use as directed Active peg 400-propylene glycol (SYSTANE) 0.4-0.3 % ophthalmic solution Administer 1 drop into both eyes as needed Active loteprednol etabonate 0.5 % ointment Apply 1 application to left eye 2 (two) times a day 1 Tube 3 08/12/20 Active prednisoLONE acetate (PRED FORTE) 1 % ophthalmic suspension Administer one drop twice a day to the lid margins of left eye Per Dr. Mcclain he showed patient how to do this 5 mL 10/14/19 Active Active Problems Problem Noted Date Diagnosed Date Polyarthralgia 04/16/2021 Myalgia 04/16/2021 Overview (05/06/2021): Labs 04/16/2021: CK/aldolase WNL; ESR/CRP WNL stomach CMP WNL; CBC: Lymphocytes: 4750, but otherwise normal; Avise 04/29/2021: Positive BALDO 1:160 speckled, but otherwise negative 76 yoAnali presents due to generalized burning pain throughout her skin/muscles since receiving COVID vaccine in November of 2020. Secondarily, she notes numerous other symptoms today, including uncontrolled GERD, constipation, fatigue, brain fog, heat sensitivity, dry eyes, dry skin. She has no obvious peripheral synovitis with diffuse tenderness to palpation. At this time, I do not see any obvious evidence to suggest any underlying rheumatologic condition, which was discussed today. This does certainly remain possible and will evaluate further with appropriate serologies. I do suspect that fibromyalgia is playing a role in her chronic pain complaints, although she seems reluctant to trial medications for this due to extensive side effects with medications in the past. Assessment & Plan (05/06/2021 12:53 PM CDT): Greg[age] yoAnali initially presented due to generalized burning pain throughout her skin/muscles since receiving COVID vaccine in November of 2020. Secondarily, she noted numerous other symptoms, including uncontrolled GERD, constipation, fatigue, brain fog, heat sensitivity, dry eyes, dry skin. She has no obvious peripheral synovitis with diffuse tenderness to palpation. Recent labs 04/16/2021, as above, did reveal a positive BALDO 1:160 in a speckled pattern without any other significant autoantibodies. ESR/CRP and CK/aldolase were WNL. At this time, do not see any obvious evidence to suggest an underlying rheumatologic issue. I do suspect that fibromyalgia is playing a role in her chronic pain complaints, although she has seemed reluctant to trial medications for this due to extensive side effects with medications in the past. Will have her follow up as needed or if any new symptoms arise. Seen with Dr. Sousa. Assessment & Plan (04/16/2021 12:55 PM CDT): 76 yoF presents due to generalized burning pain throughout her skin/muscles since receiving COVID vaccine in November of 2020. Secondarily, she notes numerous other symptoms today, including uncontrolled GERD, constipation, fatigue, brain fog, heat sensitivity, dry eyes, dry skin. She has no obvious peripheral synovitis with diffuse tenderness to palpation. At this time, I do not see any obvious evidence to suggest any underlying rheumatologic condition, which was discussed today. This does certainly remain possible and will evaluate further with appropriate serologies. I do suspect that fibromyalgia is playing a role in her chronic pain complaints, although she seems reluctant to trial medications for this due to extensive side effects with medications in the past. Fu 2 weeks. Sooner if needed. Seen with Dr. Sousa. Gastroesophageal reflux disease without esophagi tis 04/16/2021 Assessment & Plan (05/06/2021 3:48 PM CDT): This seems to be a primary complaint for her today. Do not see any underlying rheumatologic explanation for her symptoms. Previously recommended fu with GI to discuss further. Assessment & Plan (04/16/2021 12:47 PM CDT): This seems to be a primary complaint for her today. Do not see any underlying rheumatologic explanation for her symptoms. Recommended fu with GI to discuss further. 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 Overview (12/23/2016): Schatzki's ring Stress incontinence in female 04/29/2013 Overview (12/21/2016): Urinary, incontinence, stress female Osteoporosis 04/29/2013 Overview (12/21/2016): Osteoporosis Genital herpes simplex 04/29/2013 Overview (12/21/2016): Genital herpes Atrophic vulvovaginitis 04/29/2013 Overview (12/23/2016): Atrophic vulvovaginitis Impaired glucose tolerance 03/04/2013 Overview (12/23/2016): Borderline diabetes Posttraumatic stress disorder 06/07/2005 Overview (12/23/2016): PTSD (post-traumatic stress disorder) Anxiety 06/07/2005 Overview (12/24/2016): Anxiety Surgical History Surgery Date Site/Laterality Comments OTHER SURGICAL HISTORY Genital herpes: Drug therapy OTHER SURGICAL HISTORY 09/18/2012 - 09/17/2013 Burning, itchy skin : Drug therapy OTHER SURGICAL HISTORY 09/18/2012 - 09/17/2013 Paesthesias, dysthesias, query peripheral neuropathy, left facial pain: Testing OTHER SURGICAL HISTORY 09/18/2012 - 09/17/2013 Possible allergic reaction: Continue home med, refer to Dr. Aparicio for further testing OTHER SURGICAL HISTORY 09/18/2008 - 09/17/2009 IBS : Citrucel, fluids OTHER SURGICAL HISTORY 09/18/2007 - 09/17/2008 Keratoconjunctivitis: Drug therapy OTHER SURGICAL HISTORY Laparoscopy 1978 OTHER SURGICAL HISTORY C section 1981 OTHER SURGICAL HISTORY Benign bresat lump 2000 SECTION section SECTION OTHER SURGICAL HISTORY breast lumpectomy-benign CATARACT EXTRACTION 08/27/2018 Left Medical History Medical History Date Comments Hx Other Medical Genital herpes Hx Other Medical difficulty havi ng BM - No sensation Hx Other Medical urinary stress incontinence, freq, no sensation to Hx Other Medical Pruritis, cause uncertain Anxiety disorder Anxiety Hx Other Medical Burning, itchy skin Hx Other Medical Paesthesias, dy sthesias, query peripheral neuropat Hx Other Medical Possible allerg ic reaction Hx Other Medical IBS Hx Other Medical Keratoconjuncti vitis Anemia Anemia Hx Other Medical tthyroid nodule s Osteoporosis osteoporosis Hx Other Medical lymphocytosis-u ndetermined significance Hx Other Medical aortic calcific ation Allergic rhinitis Family History Medical History Relation Name Comments Prostate cancer Brother Hypertension Father Hypertension; Skin cancer Father Stroke Father Breast cancer Mother Cancer, breast ; Diabetes Mother Diabetes mellit us; Hypertension Mother Hypertension; Skin cancer Mother Stroke Mother Allergies Other 1 Family history of Allergies; Asthma Other 2 Family history of Asthma; Prostate cancer Other 3 Family histo ry of Cancer, prostate; Coronary artery disease Other 4 Fami ly history of Coronary artery disease; Diabetes Other 5 Family history of Diabetes mellitus; Hypertension Other 6 Family history of Hypertension; Stroke Other 7 Family history of Stroke; Relation Name Status Comments Brother Father Mother Other 1 Other 2 Other 3 Other 4 Other 5 Other 6 Other 7 Social History Tobacco Use Types Packs/Day Years Used Date Smoking Tobacco: Never Smokeless Tobacco: Never Alcohol Use Standard Drinks/Week Comments No 0 (1 standard drink = 0.6 oz pur e alcohol) Comments Unknown Sex and Gender Information Value Date Recorded Sex Assigned at Not on file Legal Sex Female 1:46 AM FAST FOOD SALES ASSISTANT Gender Identity Not on file Sexual Orientation Not on file Obstetrics History Last Filed Vital Signs Vital Sign Reading Time Taken Comments Blood Pressure 130/70 05/06/2021 2:25 PM CDT Pulse 75 05/06/2021 2:25 PM CDT Temperature 36.8 C (98.3 F) 05/06/2021 2:25 PM CDT Respiratory Rate 16 01/02/2019 10:07 AM CDT Oxygen Saturation 97% 05/06/2021 2:25 PM CDT Inhaled Oxygen Concentration - - Weight 55.8 kg (123 lb) 05/06/2021 2:25 PM CDT Height 165.1 cm (5' 5 ) 07/31/2018 9:49 AM FAST FOOD SALES ASSISTANT Body Mass Index 20.47 07/31/2018 9:49 AM FAST FOOD SALES ASSISTANT Plan of Treatment Not on file Insurance MEDICARE AN[employer]M [facility] Member Subscriber Plan / Payer (Ef fective 2017-Present) Name:Ileana Foster Relation to Subscriber:Spouse Name:CHAITANYASHRUTHIFELIPE Date of :1942 (Home) Address: [address] [place] [id number] Payer ID:[id number] (NAIC) Group ID:[id number] Type:[facility] Address: [address] FOR LIFE MEDICARE [facility] MEDICARE ANTH TRADITIONAL Advance Directives For more information, please contact: [phone] Documents on File Type Date Recorded Patient Sales Agent Protective Service Expl anation ADVANCE DIRECTIVE 12/05/2016 12:00 AM KURT [place] OF FLOORING MACHINE FEEDER FINANCIAL/MEDICAL Care Teams Trimming Machine Set Up Operator Relationship Specialty [place] [address] [place] [address] PCP - General Internal Medicine 10/14/19 Remberto Sousa MD [address] [place] [address] Consulting Physician Rheumatology 04/02/21
--- OUTSIDE RECORDS SUMMARY | 2025-01-22 09:05 | XMS_ITS | Encounter Summary ---
Author Organization [facility] Address [address] [place] [address] Care Team Providers Care Higher Education Administrator Name Role Phone Margi Carrero MD Primary Care Provider + Encounter Details Date Type Department Care Team (Late Contact Info) Description 07/20/2021 Prep for Procedure [facility] [address] [place], [place] [id number] Nicolás Lorenzo MD [address] [facility] [address] [place] [address] Social History Tobacco Use Types Packs/Day Years Used Date Smoking Tobacco: Never Smokeless Tobacco: Never Alcohol Use Standard Drinks/Week Comments Not Currently 0 (1 standard drink = 0.6 oz pur e alcohol) Comments No Sex and Gender Information Value Date Recorded Sex Assigned at Not on file Legal Sex Female 1:14 PM CDT Gender Identity Not on file Sexual Orientation Not on file documented as of this encounter Plan of Treatment Upcoming Encounters Date Type Department Care Team (Late Contact Info) Description 01/28/2025 2:00 PM CDT Office Visit [facility] Multispecialty Care - [facility] [address] [facility] [place] [id number] Miller Beavers PA-C [address] [facility] [address] [place] [address] documented as of this encounter Results * PRE-SURGICAL/PRE-PROCEDURE CORONAVIRUS (COVID 19) (07/25/2021 9:45 AM MINGLE OPERATOR) SPECIMEN SOURCE NASAL 9:42 AM MINGLE OPERATOR [facility] CORONAVIRUS SARS COV 2 PCR (RESP) NEGATIVE NEGATIVE 07/26/2021 11:04 AM MINGLE OPERATOR [facility] Comment: THE SARS-CoV-2 TEST HAS BEEN AUTHORIZED BY THE FDA UNDER AN EUA FOR USE BY AUTHORIZED LABORATORIES. PERFORMED BY NUCLEIC ACID AMPLIFICATION PCR FIRST TEST UNKNOWN 07/25/2021 9:42 AM MINGLE OPERATOR [facility] EMPLOYED IN HEALTHCARE NO 07/25/2021 9:42 AM MINGLE OPERATOR [facility] SYMPTOMATIC DEFINED BY CDC UNKNOWN 07/25/2021 9:42 AM MINGLE OPERATOR [facility] HOSPITALIZATION STATUS NO 07/25/2021 9:42 AM MINGLE OPERATOR [facility] PATIENT IN ICU NO 07/25/2021 9:42 AM MINGLE OPERATOR [facility] RESIDENT OF [facility] NO 07/25/2021 9:42 AM MINGLE OPERATOR [facility] NASAL STRUCTURE / Unknown 07/25/2021 9:45 AM MINGLE OPERATOR Nicolás Lorenzo MD MICROBIOLOGY - GENERAL ORDERABLE S Final Result [facility] [address] [place] [address], [place] [phone] [facility] [address] [place] [address], [place] [phone] documented in this encounter Visit Diagnoses Diagnosis Preop testing- Primary Preoperative examination, unspecified documented in this encounter Additional Health Concerns Infection Onset Date Last Indicated Resolved Time COVID-19 Rule Out 07/25/2021 07/25/2021 07/26/2021 11:04 AM MINGLE OPERATOR documented as of this encounter Care Teams Higher Education Administrator Relationship Specialty [place] [address] [place] [address] PCP - General INTERNAL MEDICINE 02/22/21 documented as of this encounter
--- OUTSIDE RECORDS SUMMARY | 2025-01-22 09:05 | XMS_ITS | Clinical Summary ---
Author Organization [facility] Address [address] [place] [address] Care Team Providers Care Pool Table Operator Name Role Phone Margi Carrero MD Primary Care Provider + Allergies Active Allergy Reactions Criticality Noted Date Comments Tape Hives 05/27/2014 Alpha Susan Quinazolines Diarrhea,Myalgias Medium 11/11/2013 Ciprofloxacin Diarrhea Medium 11/19/2013 Ciprofloxacin Hcl Hives High 06/10/2014 Clindamycin Palpitations Low 06/05/2019 Epinephrine Palpitations,Other (see comment),Hyperactive,S hortness of Breath High 11/11/2013 Hyper Reaction: tachycardia, tremor, SOB, Famotidine Redness 02/09/2021 Iodine Diarrhea,Myalgias Low 11/11/2013 Latex Rash Medium 11/19/2013 Levofloxacin Other (see comment) Low 11/19/2013 Tendonitis and muscle burning Magnesium Aspartate Other (see comment) 019 Neomycin Other (see comment) 07/30/2019 Penicillins Other (see comment) 11/11/2013 Red burning hands and feet Prednisone Rash Low 12/23/2020 Medications calcium carb-cholecalci ferol 600-400 MG-UNIT Tab tablet 1 tablet daily. Active vitamin E 400 UNIT capsule Take 400 Units by mouth daily. Active calcium carbonate 500 MG chewable tablet Chew 1 tablet by mouth daily. Active ferrous sulfate, 65 mg elemental, 325 (65 FE) MG tablet Take 325 mg by mouth. Active hydrocortisone 2.5 % cream 10/02/2020 Active ketorolac 0.5 % ophthalmic solution INSTILL 1 DROP INTO THE AFFECTED EYE TID STARTING 2 DAYS BEFORE SURGERY AND CONTINUE FOR 2 WEEKS AFTER 08/07/2020 Active multivitamin tablet Take 1 tablet by mouth. Active Polyethyl Glycol-Propyl Glycol 0.4-0.3 % ophthalmic solution Apply 1 drop to eye. Active Zinc 30 MG Tab Activ e Cholecalciferol 50 MCG (2000 UT) Cap once daily. Active tobramycin 0.3 % ophthalmic solution 1 drop daily. Active Probiotic Product (PROBIOTIC ADVANCED) Cap Patient take 1 capsule every other day Active cefdinir 300 MG Cap capsuleIndicati ons:Left lower quadrant abdominal pain Take 1 capsule (300 mg total) by mouth 2 (two) times daily. 20 capsule 08/20/2021 Active Active Problems Problem Noted Date Diagnosed Date History of colon polyps 07/08/2021 Overview (07/20/2021): Added automatically from request for surgery [id number] Screening for colon cancer 07/08/2021 Overview (07/20/2021): Added automatically from request for surgery [id number] Constipation 04/26/2021 Overview (04/26/2021): Added automatically from request for surgery [id number] Weight loss 02/11/2021 Overview (02/11/2021): Added automatically from request for surgery [id number] Epigastric pain 02/11/2021 Overview (02/11/2021): Added automatically from request for surgery [id number] GERD (gastroesophageal reflux disease) Overview (02/11/2021): Added automatically from request for surgery [id number] Immunizations Immunization Administration Dates Next Due Fluzone High Dose - >Age 65 (Prefilled Syringe) 05/15/2020 Influenza (Generic) 05/15/2020, 8,09/18/2017,2015 Influenza Adult (Generic) 09/18/2020,09/2018,09/20/2017,2014 PFIZER COVID-19 (ORIGINAL FORMULATION, PURPLE CAP) mRNA, LNP-S, PF, 30 MCG/0.3 ML DOSE 11/13/2020,11/13/2020 Pneumococcal (Pneumovax 23) 10/24/2017 Pneumococcal (Prevnar 13) 10/26/2016 Tdap (Generic) 11/06/2018 Social History Tobacco Use Types Packs/Day Years Used Date Smoking Tobacco: Never Smokeless Tobacco: Never Tobacco Cessation:Counseling Given: No Alcohol Use Standard Drinks/Week Comments Not Currently 0 (1 standard drink = 0.6 oz pur e alcohol) Comments No Sex and Gender Information Value Date Recorded Sex Assigned at Not on file Legal Sex Female 1:14 PM CDT Gender Identity Not on file Sexual Orientation Not on file Last Filed Vital Signs Vital Sign Reading Time Taken Comments Blood Pressure 130/62 08/20/2021 1:14 PM COUNTY SUPERVISOR Pulse 74 08/20/2021 1:14 PM COUNTY SUPERVISOR Temperature 36.3 C (97.3 F) 08/20/2021 1:14 PM COUNTY SUPERVISOR Respiratory Rate 18 07/28/2021 10:18 AM COUNTY SUPERVISOR Oxygen Saturation 96% 08/20/2021 1:14 PM COUNTY SUPERVISOR Inhaled Oxygen Concentration - - Weight 59.9 kg (132 lb) 08/20/2021 1:14 PM COUNTY SUPERVISOR Height 165.1 cm (5' 5 ) 08/20/2021 1:14 PM COUNTY SUPERVISOR Body Mass Index 21.97 08/20/2021 1:14 PM COUNTY SUPERVISOR Plan of Treatment Upcoming Encounters Date Type Department Care Team (Late st Contact Info) Description 01/28/2025 2:00 PM CDT Office Visit [facility] Multispecialty Care - [address] [place] [address] Miller Beavers PA-C [address] [facility] [address] [place] [address] Health Maintenance Due Date Last Done Comments Zoster Vaccines (1 of 2) 1994 Annual Medicare Wellness Visit 2009 Dexa Scan (General) 2009 RSV Immunization or 60+ Years (1 - 1-dose 75+ series) 2019 COVID-19 Vaccine (2023-2 5 season) 2024 11/13/2020, 11/13/2020 PHQ-2 (Physician [place]) 09/18/2024 DTaP, Tdap and Td Vaccines ( 2 - Td or Tdap) 11/06/2028 11/06/2018 Pneumococcal Vaccine: 50+ Years Completed 10/24/2017, 10/26/2016 Meningococcal B Vaccine Aged Out No l onger eligible based on patient's age to complete this topic Meningococcal Vaccine Aged Out No cecelia ainsley eligible based on patient's age to complete this topic RSV Immunizations Under 20 Months Aged Out No longer eligible b ased on patient's age to complete this topic Insurance MEDICARE [facility] Care Teams Pool Table Operator Relationship Specialty [place] [address] [facility] [address] [place] [address] PCP - General INTERNAL MEDICINE 02/22/21
--- OUTSIDE RECORDS SUMMARY | 2025-01-22 09:05 | XMS_ITS | Referral Summary ---
Author Organization [facility] al Address [address] [place] [address] Care Team Providers Care Registered Radiographer Name Role Phone Margi Gallegos MD Primary Care Pr ovider Remberto Sousa MD Unavailable [phone] Allergies Active Allergy Reactions Criticality Noted Date [...] 5 mg by mouth. Active calcium carbonate ([id number]) 1,250 MG (500 mg of elemental calcium) [...] stress disorder) Anxiety 06/07/2005 Overview (12/24/2016): Anxiety Social History Tobacco Use Types Packs/Day Years Used Date Smoking Tobacco: Never Smokeless Tobacco: Never Alcohol Use Standard Drinks/Week Comments No 0 (1 standard drink = 0.6 oz pur e alcohol) Comments Unknown Sex and Gender Information Value Date Recorded Sex Assigned at Not on file Legal Sex Female 1:46 AM MANAGER NC Gender Identity Not on file Sexual Orientation [...] cm (5' 5 ) 07/31/2018 9:49 AM MANAGER NC Body Mass Index 20.47 07/31/2018 9:49 AM MANAGER NC Plan of Treatment Not on file Insurance MEDICARE AN[employer]M PREFERRED [facility] MEDICARE [facility] FOR LIFE [facility] MEDICARE [facility] TRADITIONAL Advance Directives For more information, please contact: [phone] Documents on File Type Date Recorded 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
--- OUTSIDE RECORDS SUMMARY | 2025-01-22 09:05 | XMS_ITS | Patient Health Record ---
Author Organization [employer] Address [address] [facility] Michelle Juanjo. [address] [place] [id number] Care Team Providers Care Butt Sawyer Name Role Phone LidiaMaulikMargi maxwell Primary Care Provider Unav Conrad Chirinos Unavailable [phone] Allergies Allergen (clinical drug ingredient) Drug/Non Drug Allergy documented on EMR Reaction Allergy Type Onset Date Status Latex Latex (uncoded) Unknown Allergy Acti ve ciprofloxacin Cipro Unknown Drug Allergy Act shahnaz Iodine Unknown Drug Allergy Active Levaquin Unknown Drug Allergy Active Magnesium Unknown Drug Allergy Active neomycin Neomycin Sulfate burning in leg Drug Allergy Active Penicillin G Benzathine Unknown Drug Allergy Active Reason For Referral No Information Medications Medication SIG (Take, Route, Frequency, Duration) Notes Start Date End Date Status OTC/Vitamins Tylenol, MVI, Calcium, Systane Eye Drops, Iron Active Famotidine 20 MG 1 tablet Orally BID for 30 day(s) 10/29/2020 Active Immunizations Vaccine Route Administration Date Status Comme nts Influenza, seasonal, injecta ble, preservative free, 3 yrs and above Unknown 09/18/2017 Administered Social History Tobacco Use: Social History Observation Description Date Details (start date - stop date) Never Smoker NA - NA Tobacco Use/Smoking Question Answer Notes Are you a nonsmoker Section Notes: 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 Problem 335699191 Left lower quadrant pain (R10.32) Active confirmed She experiences a lot of left-sided abdominal pain that starts in the left lower quadrant and travels up the left side and radiates to the back. Problem 69919457 Dysphagia, unspecified (R13.10) Active confirmed Problem 205340612 Family history of colonic polyps (Z83.71) Active confirmed She has a significant family history of colon polyps in her father. 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 She does not have any blood in the stool. Differential diagnosis includes constipation predominant IBS, slow transit constipation, dehydration, or others. Problem 121167814 Irritable bowel syndrome with constipation (K58.1) Active confirmed Problem 210208121 Chronic GERD (K21.9) Active confirmed GERD and its natural history, potential complications, treatment options were discussed. Suspect her symptoms are multifactorial . Globus sensation, allergies, hoarseness relating to using her voice over time, etc. may all be contributing. Problem 70849516 Esophageal dysphagia (R13.10) Active confirmed Plan Of Treatment Pending Test Test Name Order Date Upper Endoscopy 11/10/2020 24 hour pH 12/17/2020 Esophageal Manometry 12/17/2020 Initiate SIBO 10/12/2017 Insurance Providers Payer Name Payer Address Payer Phone Subscriber Number Group Number Insured Name Patient Relationship to Insured Coverage Start Date Coverage End Date Medicare E2 [address] [address] [place] [address] [id number] Ileana Coombs Self - patient is the insured [place] [address] [address] [place] [address] [id number] Felipe Coombs Spouse - patient is the spouse of the insured [employer] [address] [place] [address] [id number] Felipe Coombs Spouse - patient is the spouse of the insured Medical (General) History Medical History History ICD Code GERD Colon Polyps Schatzki's Ring Internal Hemorrhoids Diverticulitis Ulcers History of SIBO Anemia Kidney Stones Migraines Covid Infection Osteoporosis Surgical History Surgery Date(Month/Year) Endoscopy:Normal mucosa was found in the entire esophagus.Mild Schatzki ring.Erythematous mucosa in the antrum.Normal examined duodenum. 11/2020 Colonoscopy (outside provider)-normal pe r patient report 2018 Benign breast lump 2000 1982 Laparoscopy 1976 Fatty cyst on leg Hospitalization History Reason Date(Month/Year) Migraine 2019
--- OUTSIDE RECORDS SUMMARY | 2025-01-22 09:05 | XMS_ITS | Clinical Summary ---
Author Organization [facility] Address [address] [place] [address] Phone Care Team Providers Care Ethnographic Materials Conservator Name Role Phone Unavailable Primary Care Provider Unavailabl e Allergies Active Allergy Reactions Criticality Noted Date Comments Adhesive Tape-Silicones Rash Low Alpha 1 Susan- Quinazolines Diarrhea,Muscle Pain Low 11/11/2013 Apixaban Other (See Comments) 01/20/2023 Mouth and tongue burning. Ciprofloxacin (Mixture) Hives High 06/10/2014 Clindamycin Palpitations Low 06/05/2019 Epinephrine Arrhythmia,Other (Se e Comments),Palpitation s,Shortness of Breath/Wheezing High 11/11/2013 Famotidine Muscle Pain High 01/08/2021 Iodine Unknown 07/30/2019 Lansoprazole Muscle Pain High 01/08/2021 Latex Rash Low 11/19/2013 Magnesium Other (See Comments) 07/30/2019 Metoprolol Rash Low 07/20/2023 Pt reports large red burning patches on skin. Neomycin Sulfate Other (See Comments) 9 Penicillins Other (See Comments) 11/11/2013 Red burning hands and feet Prednisone Rash Low 12/23/2020 Rivaroxaban Other (See Comments) 07/20/2023 Burning sensation in feet, limbs, and teeth Unclassified Drug Hives High 05/27/2014 Medications calcium as carbonate (OS-RAFI) 1,250 mg (500 mg elemental) tablet Take 500 mg by mouth daily. Active olopatadine (PATADAY) 0.2 % solution Administer 1 Drop in both eyes daily. 7 Active multivitamin (DAILY-GIORGIO) tablet Take 1 Tablet by mouth daily. Active vitamin E 400 unit capsule Take 400 Units by mouth daily. Active ferrous sulfate 325 mg (65 mg iron) tablet Take 325 mg by mouth. Active Zinc Gluconate 30 mg Tablet Take 15 mg by mouth. Active aspirin (CHETAN CHEWABLE) 81 mg Tablet, Chewable Take 81 mg by mouth daily. 3 Active OMEGA-3 FATTY ACIDS-FISH OIL ORAL Take by mouth. Activ e celecoxib (CeleBREX) 200 mg capsuleIndications :Bilateral primary osteoarthritis of knee,Acute medial meniscus tear of left knee, initial encounter,Acute medial meniscus tear of right knee, initial encounter Take 1 Capsule (200 mg) by mouth daily. 30 Capsule 3 4 Active Active Problems Problem Noted Date Diagnosed Date Irritable bowel syndrome with constipation 06/20 Fatty liver disease, nonalcoholic 06/15/2022 Facet arthritis, degenerativ e, L5-S1 level, lumbosacral spine 06/15/2022 Posterior knee pain 06/15/2022 History of colon polyps 07/08/2021 Overview (01/28/2022): Added automatically from request for surgery [id number] COVID-19 vaccination declined 06/17/2021 Polyarthralgia 04/16/2021 Other stressful life events affecting family and household 03/13/2021 Nonspecific chest pain 03/04/2021 History of COVID-19 03/04/2021 Epigastric pain 02/11/2021 Overview (01/28/2022): Added automatically from request for surgery [id number] 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 Gastroesophageal reflux disease 01/01/2020 Family history of colonic polyps 10/04/2019 Small intestinal bacterial overgrowth 10/04/2019 Other hyperlipidemia 06/07/2019 Family history of diabetes mellitus in mother History of kidney stones 05/29/2018 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 05/14/2014 Multiple thyroid nodules 12/05/2013 Adnexal mass 12/05/2013 Terminal esophageal web 05/14/2013 Overview (05/29/2018): Overview: Schatzki's ring Genital herpes simplex 04/29/2013 Overview (05/29/2018): Overview: Genital herpes Age-related osteoporosis wit hout current pathological fracture 04/29/2013 Overview (05/29/2018): Overview: Osteoporosis Stress incontinence in female 04/29/2013 Overview (05/29/2018): Overview: Urinary, incontinence, stress female Posttraumatic stress disorder 06/07/2005 Overview (05/29/2018): Overview: PTSD (post-traumatic stress disorder) Prediabetes Resolved Problems Problem Noted Date Diagnosed Date Resolved Date Other constipation 03/12/2021 Pleural effusion 03/04/2021 06/15/2022 Psychophysiological malfunction 08/08/2013 06/20/2023 Atrophic vulvovaginitis 04/29/201311/2022 Overview (05/29/2018): Overview: Atrophic vulvovaginitis Anxiety 06/07/2005 06/20/2023 Overview (05/29/2018): Overview: Anxiety Encounters Date Type Department Care Team Description 12/04/2024 External Device Data [facility]STRACTION Provider, Abstract 11/23/2024 External Device Data [facility] Provider, Abstract 11/22/2024 External Device Data [facility] Provider, Abstract 11/05/2024 External Device Data [facility]CTION Provider, Abstract from Last 3 Months Immunizations Immunization Administration Dates Next Due (ADACEL/BOOSTRIX)(10 YR UP) TDAP VACCINE, 0.5ML, IM 11/06/2018 (PFIZER)(12 YR UP) COVID-19 VACCINE - EMERGENCY USE AUTHORIZATION, MRNA, [id number](PF) 30 MCG/0.3 ML IM SUSP 11/13/2020 (PNEUMOVAX 23)(50 YRS UP) PN EUMOCOCCAL POLYSACCHARIDE (PPV23) 0.5 ML, IM 10/24/2017 (PREVNAR 13)(6 WKS UP) PNEUM OCOCCAL CONJUGATE (PCV13) 0.5 ML, IM 10/26/2016 INFLUENZA VACCINE HIGH DOSE QUADRIVALENT 65 YR UP PF IM 06/20/2023,05/15/2020 Influenza Vaccine High Dose 65+ Yrs IM 9 Influenza Vaccine Split 3+ Yrs IM 09/29/2017 Influenza Vaccine Tri Split 4+ Im 09/29/2017 Influenza Vaccine Tri Split 4+ Pf Im 09/18/2017 Influenza, Unspecified Formulation 09/18,06/18/2019,09/20/2017,08/21 Pneumococcal Polysaccharide Vacc 23-jewel IM SCHIP 10/24/2017 Skin Test TB 04/15/2020 Family History Medical History Relation Name Comments Cancer Brother Colon Polyps Father Hypertension Father Stroke Father Diabetes Maternal Grandfather Hypertension Maternal Grandmother Thyroid Disease Maternal Grandmother Breast Cancer Mother Diabetes Mother Heart Failure Mother Hypertension Mother Stroke Mother Asthma Paternal Grandmother Bronchitis Neg Hx Emphysema Neg Hx Lung Cancer Neg Hx Mesothelioma Neg Hx Relation Name Status Comments Brother Father Maternal Grandfather Maternal Grandmother Mother Paternal Grandfather Paternal Grandmother Social History Tobacco Use Types Packs/Day Years Used Date Smoking Tobacco: Never Smokeless Tobacco: Never Tobacco Cessation:Counseling Given: Not Answered Alcohol Use Standard Drinks/Week Comments No 0 (1 standard drink = 0.6 oz pur e alcohol) Financial Resource Strain Answer Date R ecorded How hard is it for you to pa y for the very basics like food, housing, medical care, and heating? Not hard at all 06/15/2022 Food Insecurity Answer Date Recorded In the past 12 months, have you worried that your food would run out before you had money to buy more? Never true 06/15/2022 In the past 12 months, did y ou run out of food and didn't have money to buy more? Never true 06/15/2022 Transportation Needs Answer Date Record ed In the past 12 months, has l ack of transportation kept you from medical appointments or from getting medications? No 06/15/2022 Lack of Transportation (Non-Medical) Not on file 06/15/2022 Comments No Sex and Gender Information Value Date Recorded Sex Assigned at Not on file Legal Sex Female 2:30 PM [employer] Gender Identity Not on file Sexual Orientation Not on file Occupation Industry Job Start Date Job End Date retired - [employer] Not on file Not on file Not on file Last Filed Vital Signs Vital Sign Reading Time Taken Comments Blood Pressure 140/83 07/20/2023 2:55 PM CDT Pulse 89 07/20/2023 2:55 PM CDT Temperature 36.7 C (98.1 F) 04/12/2021 10:50 AM CDT Respiratory Rate 16 04/12/2021 10:50 AM CDT Oxygen Saturation 96% 06/22/2023 3:35 PM CDT Inhaled Oxygen Concentration - - Weight 63 kg (139 lb) 01/01/2024 11:01 AM CDT Height 165.1 cm (5' 5 ) 01/01/2024 11:01 AM CDT Body Mass Index 23.13 01/01/2024 11:01 AM CDT Plan of Treatment Health Maintenance Due Date Last Done Comments ZOSTER VACCINE (1 of 2) 1994 RSV VACCINE (60+ or ) (1 - 1-dose 75+ series) 2019 INFLUENZA VACCINE (#1) 2024 3, 05/15/2020, 06/18/2019, Additional history exists COVID-19 Vaccine (2 - 2023-2 5 season) 2024 11/13/2020 OSTEOPOROSIS SCREENING 06/15/2026 , 06/15/2021, 06/11/2019, Additional history exists COLORECTAL SCREENING 07/28/2026 07/28/2021, 07/28/2021, 07/28/2021, Additional history exists DTAP/TDAP/TD VACCINES (2 - T d or Tdap) 11/06/2028 11/06/2018 PNEUMOCOCCAL VACCINE 50+ YEARS Completed 0 10/24/2017, 10/24/2017, 10/26/2016 Procedures Procedure Name Priority Date/Time Associated Diagnosis Comments ENDOSCOPY, COLON, DIAGNOSTIC Routine 07/28/2021 HM DEXA SCAN Routine 06/15/2021 from Last 3 Months or Most Recently Relevant to Health Maintenance Results * ENDOSCOPY, COLON, DIAGNOSTIC (07/28/2021) us Abstract Provider GI PROCEDURE ORDERABLES Edited Result - Final [facility] CLIA# [id number] [address] * HM DEXA SCAN (06/15/2021) us Abstract Provider HEALTH MAINTENANCE Edited Resu lt - Final [facility] CLIA# [id number] [address] [address] from Last 3 Months or Most Recently Relevant to Health Maintenance Insurance MEDICARE PART A AND B [employer] [facility]
== END 2025-01-22 08:52 | disposition home or self-care (01) ==
LOC: ANHIMG 08:52
PROVIDERS: PCP Family Medicine; Visit Provider Nurse Practitioner Obstetrics & Gynecology
DX: M81.0 Age-related osteoporosis without current pathological fracture (principal); M85.89 Other specified disorders of bone density and structure, multiple sites
CPT/HCPCS: 77080

== ENCOUNTER 2025-04-14 18:08 | Emergency (ER) | payer MEDICARE, BC, OTHER, SELFPAY ==
--- NOTE | 2025-04-14 18:12 | ED_ITS ---
HPI - Skin/Abscess/Foreign Bdy General Chief complaint: Skin/Abscess/Foreign Body Stated complaint: Rash Time Seen by Provider: 04/14/25 18:14 Source: patient Mode of arrival: ambulatory Limitations: no limitations History of Present Illness HPI narrative: 80 y/o female presented for c/o red rash to left lower mouth today. Endorses burning sensation. Pt is using clindamycin lotion to treat rosacea around the mouth for one week. Pt says this redness is not the same as the rosacea. Also admits to eating a beet chew, and is concerned it may have had strawberry fruit juice in it. Hx strawberry allergy. Denies lip, tongue, or throat swelling, shortness of breath or wheezing. Denies changes to soap, detergent, lotion, or any other exposures. No one else in the house or any contacts with similar symptoms. Related Data Home Medications ?Medication ?Instructions ?Recorded ?Confirmed ?Last Taken ?Type multivitamin (Daily Multi-Vitamin 1 tablet PO DAILY 12/24/20 08/23/24 Unknown History tablet) calcium carbonate 390 mg PO DAILY 01/14/21 08/23/24 Unknown History cholecalciferol (vitamin D3) 25 25 mcg PO DAILY 04/14/22 08/23/24 Unknown History mcg (1,000 unit) capsule ferrous gluconate 240 mg (27 mg 240 mg PO DAILY 04/14/22 08/23/24 Unknown History iron) tablet (Ferate) aspirin 81 mg chewable tablet 81 mg PO DAILY 08/24/23 08/23/24 Unknown History magnesium 200 mg tablet 200 mg PO DAILY 07/24/24 08/23/24 Unknown History Allergies Allergy/AdvReac Type Severity Reaction Status Date / Time sulfamethoxazole (From Allergy Intermediate Rash Verified 04/14/25 18:15 Bactrim) trimethoprim (From Bactrim) Allergy Intermediate Rash Verified 04/14/25 18:15 cimetidine (From Tagamet) Allergy Unknown Unknown Verified 04/14/25 18:15 levofloxacin Allergy Unknown Diarrhea Verified 04/14/25 18:15 magnesium stearate Allergy Unknown Other Verified 04/14/25 18:15 Penicillins Allergy Unknown Other Verified 04/14/25 18:15 COVID-19 vaccine, mRNA, Allergy Burning Verified 04/14/25 18:15 [id number], all over the body, dryness esomeprazole (From Nexium) Allergy Rash Verified 04/14/25 18:15 famotidine Allergy Muscle Pain Verified 04/14/25 18:15 ephedrine AdvReac Intermediate Palpitation Verified 04/14/25 18:15 s ciprofloxacin AdvReac Unknown Diarrhea Verified 04/14/25 18:15 Quinolones AdvReac Unknown Diarrhea Verified 04/14/25 18:15 rivaroxaban (From Xarelto) AdvReac Other Verified 04/14/25 18:15 Contrast Media Allergy Unknown Rash Uncoded 04/14/25 18:15 Review of Systems 2 Review of Systems: CONSTITUTIONAL: Denies body aches, fever, chills, or sweats. EYES: Denies visual changes, redness, or discharge. ENT: Denies rhinorrhea, congestion CARDIOVASCULAR: Denies chest pain, palpitations, or edema. RESPIRATORY: Denies cough or dyspnea. GASTROINTESTINAL: Denies abdominal pain, nausea, vomiting, or diarrhea. SKIN: reports rash around mouth MUSCULOSKELETAL: Denies back pain, joint pain, or myalgia. NEUROLOGIC: Denies headache, numbness, tingling, or weakness. [facility] [place] Past Medical History Medical History Chronic pain of both knees Costochondritis, acute Hematuria History of gastroesophageal reflux (GERD) HSV (herpes simplex virus) infection Irritable bowel syndrome Macular degeneration Screening for hyperlipidemia Seborrheic dermatitis, unspecified Surgical History Surgical History Cataract extraction status, left eye (~2019) Cataract extraction status, right eye History of lumpectomy of right breast Family History Family History Father Hypertension, Onset Age: 81 Cerebrovascular accident, Onset Age: 81 Patient's father is , Onset Age: 81 Mother Hypertension Cerebrovascular accident Family history of diabetes mellitus in first degree relative Family history of malignant neoplasm of breast in first degree relative Family history of glaucoma Family history of heart disease in male family member before age 55 Sibling Malignant neoplasm of prostate Grandparent Hypertension Diabetes mellitus Other Family history of cardiovascular disease Social History Social History Smoking status: Never smoker Tobacco type: cigarettes Second hand tobacco smoke exposure: No Alcohol intake: never Substance use: never Lack of Transportation: No Lack of Food: Never True Current Housing: I Have Housing Concerned About Future Housing: No Difficulty Paying Gas/Electric Bills: No Difficulty Paying for Meds: No Currently Unemployed: No Difficulty w/ Childcare or Family Care: No Living arrangements: with family Additional living arrangements comments: Spouse Occupation/Education: retired Gender identity (if verbalized by the patient): Female Sexual Orientation (if Verbalized by the Patient): Straight or Heterosexual Spiritual care concerns: No Comments At time of signature, I have reviewed and agree with nursing past medical, surgical, social and family history unless otherwise noted. Please see nursing chart for further information. There is no relevant family history pertinent to the presenting complaint Exam 2 Narrative: GENERAL: Well-appearing HEAD: Normocephalic, atraumatic. EYES: conjunctivae clear, and EOMI. ENT: Left lower corner of chin/mouth with flat erythematous patches, nontender, dry, no blisters or drainage. No lip/tongue swelling. Mucous membranes moist. Oropharynx without edema, erythema or lesions. NECK: Supple. No lymphadenopathy CHEST: Clear to auscultation. HEART: Regular rate and rhythm. SKIN: Warm, dry. NEURO: Alert and oriented x3. HENMT: Face images: 1. scattered flat erythematous patches Course Course Emergency Course: Patient is aware of diagnosis, understands and agrees to treatment plan. Anticipatory guidance given. Patient agrees to follow-up as directed and is aware of reasons to seek care at the emergency department. Portions of this record may have been created with voice recognition software Level of Care: Express Care Visit Vital Signs Vital signs: Reviewed MDM - Skin/Abscess/Foreign Bdy MDM Narrative Medical decision making narrative: Discussed physical exam findings and possible etiologies. Pt reports it is improving, therefore advised close monitoring. Pt has had shingles in the past, will f/u if site becomes more blistered/painful. Advised supportive measures and signs/symptoms to go to the ER. Pt is appropriate for outpt treatment and f/u. Differential Diagnosis Differential diagnosis: Likely abscess of skin or subcutaneous tissue, viral exanthem, dermatophytosis, urticaria, herpes zoster, cellulitis, eczema, insect bites, impetigo and contact dermatitis Discharge Plan Discharge Clinical Impression: Dermatitis Patient Disposition: Home Condition: Stable Instructions: Antibiotic Form Additional Instructions: Since the area appears to be improving, you can continue to see how it develops overnight If you use a cream, please use hydrocortisone 1% cream [id number] You can take a low-dose Benadryl as needed to reduce itching Wash the area with gentle soap and water only. 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 Patient Language: [place] Island[place] Prescriptions: No Action aspirin 81 mg tablet,chewable 81 mg PO DAILY magnesium 200 mg tablet 200 mg PO DAILY multivitamin [Daily Multi-Vitamin] Tablet 1 tablet PO DAILY calcium carbonate 390 mg calcium (1,000 mg) tablet 390 mg PO DAILY cholecalciferol (vitamin D3) 25 mcg (1,000 unit) capsule 25 mcg PO DAILY ferrous gluconate [Ferate] 240 mg (27 mg iron) tablet 240 mg PO DAILY Follow-up/Referrals: Denise,Marty Lopez MD [Primary Care Provider] -
[2025-04-14 18:21] VITALS: BP 153/81; PULSE 78; RESP 16; TEMP 36.4; O2SAT 100
== END 2025-04-14 18:43 | disposition home or self-care (01) ==
PROVIDERS: Emergency Provider Nurse Practitioner Family; PCP Family Medicine
DX: L30.9 Dermatitis, unspecified (principal); K21.9 Gastro-esophageal reflux disease without esophagitis; H35.30 Unspecified macular degeneration; Z98.42 Cataract extraction status, left eye; Z98.41 Cataract extraction status, right eye
CPT/HCPCS: 99211; G0463